=== PATIENT | female | born 1975 | race Caucasian/White ===

== ENCOUNTER 2024-09-26 12:31 | Outpatient (AMB) | payer MEDICARE, MEDICAID, SELFPAY ==
--- NOTE | 2024-09-26 12:33 | A.OFFVIS_ITS ---
Vital Signs 09/26/24 12:35 Height 5 ft 7.32 in Weight 215 lb 6.266 oz BMI 33.4 BP 140/86 H Blood Pressure Location Lt brachial Position Sitting Pulse Oximetry (%) 98 Oxygen Delivery Method Room Air Intake Visit Reasons: Intake Note: Patient presents for follow up. pt stTES THATS HE HAD COVID AND SEPT AND SHE HAS BEEN DEALING WITH BRAIN FOG EVER SINCE Allergies acetaminophen [Vicodin] Allergy (Unknown, Verified 09/12/24 10:38) Hives hydrocodone [Vicodin] Allergy (Unknown, Verified 09/12/24 10:38) hives oxcarbazepine [Trileptal] Allergy (Unknown, Verified 09/12/24 10:38) Unknown polymyxin B [From Polytrim] Allergy (Verified 09/12/24 10:38) Unknown trimethoprim [From Polytrim] Allergy (Verified 09/12/24 10:38) Unknown Sulfacet-R Allergy (Unknown, Uncoded 09/12/24 10:38) unknown methtexrate Allergy (Uncoded 09/12/24 10:38) facial swelling trileptal Allergy (Uncoded 09/12/24 10:38) Unknown HPI HPI : Details: She developed cysts around right shoulder and upper back. She had difficulty lifting her arm due to pain. In Nov she was on video call with ID who diagnosed her with Hiddrenitis suppuritiva. She started spironolactone. She will be seeing an academic hop strainer in [place] who specializes in hydradenitis suppurativa. She has had tremors in extremities. It can last 45 minutes. Legs can give out. BS 114-140. Constant back pain. Stiffness is all day. Hard to bend. Movement is making it worse. Pain is uncontrolled. She did not participate in PT. Hx of vertigo. [facility] Medical History (Updated 09/27/24 @ 21:24 by Weston Neal MD) Hidradenitis suppurativa Diabetes type 2 Endometrioma of ovary Precancerous lesion Ankylosing spondylitis Spondylolytic spondylolisthesis Zana's disease H/O degenerative disc disease Endometriosis Irritable bowel syndrome Asthma Family History (Updated 09/26/24 @ 12:44 by Debbie Aguirre [facility]) Mother Hemochromatosis Gout Stented coronary artery Father Cancer Unknown Spondylitis Multiple sclerosis Brother Throat cancer Testicular cancer Social History Household Members: Children Household Members Other:: 1 age 21 Comment: 1-2 drinks a year Patient Tobacco Use Status: Former Tobacco user Review of Systems Const All systems reviewed & are unremarkable except as noted in HPI and below Physical Exam Vital Signs: Last Vital Signs BP 140/86 H 09/26/24 12:35 Pulse Ox 98 09/26/24 12:35 Oxygen Delivery Method Room Air 09/26/24 12:35 BMI result Body Mass Index 33.4 Const Other: General: Comfortable CVS: RRR Respiratory: clear to auscultation bilaterally. Good respiratory effort Skin: No lesions seen MSK: Multiple joints in hands are tender with MCPs, PIP and wrists. She is able to oven drier tender my hands but it is weak. No synovitis. Bilateral shoulder tenderness on palpation. Right shoulder abduction 90 degrees with limited internal external rotation. Left shoulder abduction 160 degrees with good internal external rotation. Tender bilateral SI joints. Tender midthoracic spinous process and paraspinal muscles. Tender thoracic paraspinal muscles and lumbar paraspinal muscles. Limited full lumbar flexion. Positive GLADYS. Knee flexion 90 degrees bilateral limited due to back pain. She has diffuse allodynia in upper extremities and lower extremities. Assessment & Plan Assessment & Plan (1) Ankylosing spondylitis: Comment: Uncontrolled back pain is multifactorial due to myofascial strain, mild lumbar degenerative joint disease (small anterior vertebral body osteophyte L3-L4 and mild degenerative facet arthropathy L4-L5) and inflammatory back pain. DMARD therapy has been on hold due to unclear etiology of facial and extremity lesions that have become progressive and now forming cysts. She will be evaluated by academic hop strainer at [facility] who specializes in hydradenitis suppurativa 10/2024. Her most recent x-rays did not reveal radiographic findings of axial inflammatory arthritis. She continues to have persistent elevation in inflammatory markers. I am pursuing MRI pelvis for further evaluation of inflammatory sacroiliitis as it will pack changer with more aggressive treatment with biologic such as TNF inhibitor. Rheumatology history: She has non radiographic ankylosing spondylitis HLA B27 positivity, elevated inflammatory markers. Manifesting as chronic inflammatory back pain and history of peripheral arthritis affecting hands. She could not tolerate methotrexate in the past. She has a sulfa allergy. She has declined leflunomide due to side effect profile. Failed hydroxychloroquine as she continued to have persistent polyarthralgias. Cosentyx was tried in 2021 but discontinued after 2 maintenance doses due to development of facial lesions with cellulitis. After treatment of cellulitis she continued to develop facial lesions extending to involve her extremities, unclear etiology. Code(s): M45.9 - Ankylosing spondylitis of unspecified sites in spine Category: Medical Qualifiers: Ankylosing spondylitis location: sacral region Qualified Code(s): M45.8 - Ankylosing spondylitis sacral and sacrococcygeal region Plan: MRI pelvis ordered to evaluate for inflammatory sacroiliitis Start muscle relaxer baclofen 5 or 10 mg at bedtime Start NSAID meloxicam 15 mg daily Start physical therapy with myofascial release Return to clinic in 3 months (2) Myofascial low back pain: Code(s): M54.50 - Low back pain, unspecified Category: Medical Plan: PT ordered with myofascial release Start muscle relaxer baclofen 5 mg or 10 mg q.h.s. prn back pain (3) Adhesive capsulitis of right shoulder: Comment: Chronic, limited range of motion is consistent with adhesive capsulitis. She has underlying mild AC and glenohumeral joint arthritis on x-ray. Code(s): M75.01 - Adhesive capsulitis of right shoulder Category: Medical Plan: PT ordered to increase range of motion Start NSAID meloxicam 15 mg daily (4) Primary osteoarthritis, right shoulder: Code(s): M19.011 - Primary osteoarthritis, right shoulder Category: Medical Plan: See above (5) Fibromyalgia: Comment: On exam this visit she had diffuse allodynia Code(s): M79.7 - Fibromyalgia Category: Medical Plan: I will continue to monitor. She is on duloxetine, which is indicated for fibromyalgia. Orders: Orders Alanine Aminotransferase 09/26/24 M45.9 - Ankylosing spondylitis of unspecified sites in spine C Reactive Protein 09/26/24 Z79.899 - Other technician terminal and repeater (current) drug therapy XR lumbar spine 2-3V 09/26/24 M45.9 - Ankylosing spondylitis of unspecified sites in spine XR shoulder RT min 2V 09/26/24 M25.511 - Pain in right shoulder MR pelvis wo con Today G89.29 - Other chronic pain, M45.9 - Ankylosing spondylitis of unspecified sites in spine, M54.9 - Dorsalgia, unspecified Erythrocyte Sedimentation Rate 09/26/24 Z79.899 - Other technician terminal and repeater (current) drug therapy Aspartate Amino Transferase 09/26/24 M45.9 - Ankylosing spondylitis of unspecified sites in spine Creatinine 09/26/24 M45.9 - Ankylosing spondylitis of unspecified sites in spine XR sacroiliac joint min 3V 09/26/24 M45.9 - Ankylosing spondylitis of unspecified sites in spine XR thoracic spine 2V 09/26/24 M45.9 - Ankylosing spondylitis of unspecified sites in spine PT Evaluation and Treatment Today M19.011 - Primary osteoarthritis, right shoulder, M45.9 - Ankylosing spondylitis of unspecified sites in spine, M54.50 - Low back pain, unspecified, M75.01 - Adhesive capsulitis of right shoulder Medications: New meloxicam Take with food. 15 mg PO DAILY 30 tabs 2RF baclofen Take half a tablet or 1 tablet at bedtime as needed for back pain (muscle r elaxer) 10 mg PO BEDTIME PRN 30 tabs 2RF back pain Coding Level of Care Code Est Pt Level 5 (78579) Diagnoses Ankylosing spondylitis of sacral region M45.8 Ankylosing spondylitis location: sacral region Myofascial low back pain M54.50 Adhesive capsulitis of right shoulder M75.01 Primary osteoarthritis, right shoulder M19.011 Fibromyalgia M79.7 Time Spent (min) 40
[2024-09-26 12:35] VITALS: BP 140/86; O2SAT 98; BMI 33.4
--- OUTSIDE RECORDS SUMMARY | 2024-09-26 14:55 | XMS_ITS | Continuity of Care Document ---
Author Organization [facility] Address [address] [place], [place] Phone [phone] Care Team Providers Care Senior Trainer Name Role Phone Allie Galaviz CNP Care Team Information Pulmonary Care Nurse Unavailable ANJANA PICHARDO M.D. Care Team Information Rec eiver Unavailable Allie Galaviz CNP Primary Care Physician Unavaila ble Problems Active Problems Provider Date Hidradenitis suppurativa Anjana Pichardo M.D. Onset: 07/19/2024 Type 2 diabetes mellitus Anjana Pichardo M.D. Onset: 07/19/2024 Vitiligo Anjana Pichardo M.D. Onset: 0 02/05/2020 Anemia Anjana Pichardo M.D. Onset: 0 02/05/2020 Abnormal weight gain Anjana Pichardo M.D. Ons et: 02/05/2020 Zana thyroiditis Anjana Pichardo M.D. On set: 02/05/2020 Social History Type Date Description Comments Sex Unknown Allergies and adverse reactions Active Allergies Criticality Reaction Severity Comments Date Trileptal Unable to assess criticality 02/05/2020 Sulfamethoxazole Unable to assess criticality 02/05/2020 Vicodin Unable to assess criticality 02/05/2020 Polytrim Unable to assess criticality 02/05/2020 Methotrexate Unable to assess criticality 06/16/2020 Medications Active Medications SIG Qnty Indications Ordering Provider Date Freestyle Lite Blood Glucose Monitoring SystemW/Device Kit use 1x a day to test bs 1units E16.2 Anjana Pichardo M.D. 09/03/2024 E11.9 Ozempic (0.25 Or 0.5 MG/Dose)2mg/3ML Solution Pen-Inject 0.25 mg sub cutaneously every week [id number] then 0.5/week as tolerated 3ml E11.9 Anjana Pichardo M.D. 07/19/2024 Hgcvpjmuqfgpay43zv Tablets take 1 tablet by mouth twice a day 180tabs E11.9 Anjana Pichardo M.D. 07/19/2024 Levothyroxine Bjhivm65glq Tablets take 1 tablet by mouth every day 90tabs E06.3 Anjana Pichardo M.D. 06/29/2023 Neosporin Plus Pain Relief Maximum [id number] Cream multiple times a day Unknown Cyclobenzaprine HCL5mg Tablets prn Weston Neal MD Nacn-Acetyl L-Cystine(Selenium, B12) Unknown Mupirocin2% Ointment Unknown Clonidine HCL0.1mg Tablets White, Ivis, COLD WORK OPERATOR Rssxgota372kt Tablets prn arm pain/stiff Weston Neal MD Tretinoin0.05% Cream 2-3x a week Unknown Hydroxyzine OPD97zc Tablets am dose as needed Unknown Sfrqpgytmm66bd Tablets Take 1 am & 3 in pm Unknown Vitamin B Complex-CCapsules Daily Un known Ppvmvdl530dl Capsules as needed Unknown Lubricant Eye Drops0.4-0.3% Solution Unknown MultivitaminTablets 1/ day(contains iron) Unknown Benedryl prn only @hs Unknown 000 Xruivpfpaa5je Tablets Take 1 Tablet By Mouth Once Or Twice Daily as Needed Unknown History Medications Freestyle Jessy 3 Plus/Sensor/Glucose Monitoring SystemMisc use to measure bs 4 or more times a day 6units E16.2 Anjana Pichardo M.D. 08/28/2024 - 09/03/2024 E11.9 Similac Alimentum Advance-IronLiquid take 65mg iron by mouth daily 30units Anjana Pichardo M.D. 06/29/2023 - 07/19/2024 Levothyroxine Zmpyij63vmd Tablets 1 take tablet once daily 90tabs E06.3 Anjana Pichardo M.D. 11/23/2021 - 04/19/2022 [id number]-[id number] Tablets 1 tabs by mouth three times a day 90tabs D64.9 Anjana Pichardo M.D. 04/07/2020 - 03/15/2023 Levothyroxine Qiaboj19sjf Tablets Take 1&1/2 Tabs(37.5mcg) For 4 Days Per Week & 2Tabs(50mcg) For 3 Days A Week 90tabs E06.3 Anjana Pichardo M.D. 04/07/2020 - 11/23/2021 Levothyroxine Lxyybs49hjy Tablets 1 by mouth every day 90tabs E06.3 Anjana Pichardo M.D. 02/05/2020 - 04/07/2020 Cosentyx Sensoready Xud541wg/ml Solution Auto-Inject Mariel Fink MD - 04/19/2022 Escitalopram Nremxvw79vr Tablets Ivis Alejandra NP - 08/23/2024 Feso4 Liq 220mg/5ml-intolera nt Unknown - 08/23/2024 Doxycycline Nikjgwgwqsj252qw Capsules Allie Galaviz CNP - 08/23/2024 Paxlovid (300/100)20x 150 mg & 10 x 100mg TBPK Take 3 Tablets By Mouth Twice A Day For 5 Days Veronica Serra NP - 07/19/2024 Betamethasone Dipropionate Augmented0.05% Cream every other day or janice 3 or as needed Alex Blanco MD - 08/23/2024 Clindamycin Phosphate1% Lotion 2x day Tati Bowens NP - 08/23/2024 Vilazodone DLR16fk Tablets qd Ivis Alejandra NP - 08/23/2024 Levothyroxine Wcycvw15ixj Tablets Take 1&1/2 Tabs(37.5mcg) By Mouth For 4 Days Per Week & 2Tabs(50mcg) For 3 Days A Week 90tabs E06.3 Anjana Pichardo M.D. - 06/29/2023 Aliquot/Tretinion/HC Powder apply to face Unknown - 03/15/2023 Hydroxychloroquine Vkactoy505eq Tablets Take 2 Tablets By Mouth Every Day Mariel Fink MD - 08/23/2024 Amphetamine-Dextroamphet wmdtb49ia Tablets Take 1 Tablet By Mouth Twice A Day-stopped since not helpful Ivis Alejandra NP - 07/19/2024 Folic Gfrx5nu Tablets Take 1 Tablet By Mouth Every Day Unknown - 03/15/2023 Vitamin D-325mcg (1000 Ut) Capsules take 1 capsule by mouth every day in the morning for dietary supplement Unknown - 03/15/2023 Vitamin C500mg Capsules 1 by mouth every day Unknown - 06/16/2020 Gtqezoz93zr Packet Unknown 0 - 02/05/2020 Fluzone Quadrivalent0.5ml Nurys To Be Administered By Pharmacist For Immunization Unknown - 06/16/2020 Hydroxyzine HTB15qm Tablets Take 1 Tablet By Mouth With Each Meal Unknown - 11/23/[address] Part Take 1 Capsule By Mouth Every Day Unknown - 09/18/2020 Trazodone HNJ23lv Tablets Take 1 Tablet By Mouth Everyday AT Bedtime Unknown - 09/18/[address] Take 1 Capsule By Mouth Every Day Unknown - 07/19/2024 Prazosin HCL1mg Capsules Take 1 Capsule By Mouth Everyday AT Bedtime Unknown - 03/15/2023 Mecvwevxfv1xl Tablets Take 1 Tablet By Mouth Every Day Unknown - 06/16/2020 Methotrexate2.5mg Tablets Take 6 Tablets By Mouth Every Week Unknown - 06/16/2020
--- OUTSIDE RECORDS SUMMARY | 2024-09-26 14:56 | XMS_ITS | Encounter Summary ---
Author Organization [employer] Address [address] [place] [address] [address] [address] Care Team Providers Care Lime Hide Inspector Name Role Phone Key Martin Unavailable Allie Galaviz INSERT MOLDING OPERATOR Primary Care Provider [phone] Reason for Referral * Imaging (Routine) - Authorized Specialty Diagnoses / Procedures Referred By Contnicole dias Referred To Contact Cardiology Diagnoses Shortness of breath Procedures Transthoracic echo (TTE) complete Allie Galaviz NP [address] [place], [place] Phone: tel: fax: Cardio/Pulmonary Dept, [facility] [address] [place], [place] Phone: tel: fax: Referral ID Status Reason Start Date Expiration Date Visits Requested Visits Authorized [id number] Authorized Perform Procedure 09/26/2024 09/26/2025 1 1 Reason for Visit * Reason Comments Follow-up Skin condition hydro denitis suppuritiva- wasn't able to get appt with [facility] until October. Cysts, sores, leaking wounds that are spreading. Visibly upset Encounter Details Date Type Department Care Team ([facility] Contact Info) Description 09/25/2024 3:40 PM EST Office Visit [facility] [address] [place] [id number] Allie Galaviz NP [address] [place] [address] Shortness of breath (Primary Dx); Rash; Iron deficiency anemia, unspecified iron deficiency anemia type Social History Tobacco Use Types Packs/Day Years Used Date Smoking Tobacco: Former Cigarettes Q uit: 07/31/2018 Smokeless Tobacco: Never Alcohol Answer Date Recorded How often do you have a drink containing alcohol ? 0 12/18/2023 How many drinks containing a lcohol do you have on a typical day when you are drinking? 0 12/18/2023 How often do you have six or more drinks on one occasion? 0 12/18/2023 Depression Answer Date Recorded Patient Health Questionnaire-9 Score 24 06/02/2023 Patient Health Questionnaire-9 Score 24 06/02/2023 Last PHQ-9: Questionnaire Data Not on file 1 08/02/2022 Housing Stability Answer Date Recorded What is your housing situation today? I have lakisha edwards 06/02/[address] you li ve. Do you have problems with any of the following? Mold 06/02/2023 Food Insecurity Answer Date Recorded Within the past 12 months, y ou worried that your food would run out before you got money to buy more: Never True 06/02/2023 Within the past 12 months,th e food you bought just didn't last and you didn't have enough money to get more: Never True 09/2022 Transportation Answer Date Recorded In the past 12 months, has l ack of transportation kept you from medical appts, meetings, work or from getting things needed for daily living? No 06/02/2023 Intimate Partner Violence Answer Date R ecorded Within the last year, have y ou been afraid of your partner or ex-partner? 2 06/02/2023 Within the last year, have y ou been humiliated or emotionally abused in other ways by your partner or ex-partner? 2 Within the last year, have y ou been kicked, hit, slapped, or otherwise physically hurt by your partner or ex-partner? 2 06/02/2023 Within the last year, have y ou been raped or forced to have any kind of sexual activity by your partner or ex-partner? 2 06/02/2023 Utilities Answer Date Recorded In the past 12 months, has t he electric, gas, oil or water company threatened to shut off services in your home? No 06/02/2023 Depression Answer Date Recorded Patient Health Questionnaire-2 Score 6 06/02/2023 Comments No Sex and Gender Information Value Date Recorded Sex Assigned at Female 08/25/2022 12:05 PM EST Legal Sex Female 6:20 PM EDT Gender Identity Female 08/25/2022 12:05 PM EST Sexual Orientation Straight 08/25/2022 12 :05 PM EST documented as of this encounter Last Filed Vital Signs Vital Sign Reading Time Taken Comments Blood Pressure - - Pulse 120 09/25/2024 4:17 PM EST Temperature 36.1 ??C (97 ??F) 09/25/2024 4:17 PM EST Respiratory Rate - - Oxygen Saturation 98% 09/25/2024 4:17 PM EST Inhaled Oxygen Concentration - - Weight 97.3 kg (214 lb 9.6 oz) 09/25/2024 4:17 P M EST Height - - Body Mass Index 34.64 06/14/2024 2:57 PM EST documented in this encounter Progress Notes * Allie Galaviz NP - 09/25/2024 3:40 PM EST Images from the original note were not included. Subjective Patient ID: Shelley Keita is a 49 y.o. female who presents today for Chief Complaint Patient presents with Follow-up Skin condition hydrodenitis suppuritiva- wasn't able to get appt with [facility] until October. Cysts, sores, leaking wounds that are spreading. Visibly upset HPI Shelley presents for ongoing skin issues and shortness of breath. Skin wounds/rash - unfortunately Shelley has ongoing issues with rashes/lesions and abscess that occur all over her body and may be associated with Sjogrens and/or staph and/or hidradenitis - she presents today with lesions on torso, legs, face and abdomen - she has had really good improvement in her skin with prolonged courses on Doxycycline - her wounds drain yellowish, bad smelling pus and have no particular obvious cause SOB/Dyspnea Iron deficiency Anemia, severe and symptomatic - she has h/o chronic anemia and has been on oral iron for over 3 years. In May 2024 her Hgb was 8.4 and we tried to refer to Hematology but there was miscommunication in the referral and she was never seen - Shelley also described feeling extremely SOB with SANDS and dpysnea when bending over - she is getting dizzy spells and feels vertiginous - at times she feels super shaky and has bilateral hand tremors - she uses an OTC formulation of iron due to tolerability- she truong been unable to tolerate multiple forms of prescription iron - of note she does have a h/o asthma and COVID in the fall of 2023 - she has had long-covid symptoms of fatigue and brain fog - she has not had wheezing Swelling - Shelley also describes generalized swelling and feeling like her skin is a water balloon - she was put on Leonard from [employer] helps - minimal swelling noted today DM2 - seeing Dr. Pichardo, diagnosed with diabetes based on A1C - started on Ozempic and has lost about 8 pounds - checks her BG when feeling shaky/weak and typically values are in the mid 100s ELENA supsected - consulted with [facility] via virtual call and is now pending sleep study Review of Systems HENT: Negative for congestion. Respiratory: Positive for chest tightness and shortness of breath. Negative for cough. Cardiovascular: Positive for leg swelling. Negative for palpitations. Skin: Positive for rash. Neurological: Positive for dizziness, tremors and weakness. Objective Pulse (!) 120 Temp 97 ??F (36.1 ??C) (Temporal) Wt 214 lb 9.6 oz (97.3 kg) SpO2 98% BMI 34.64 kg/m?? Physical Exam Vitals reviewed. Cardiovascular: Rate and Rhythm: Regular rhythm. Tachycardia present. Heart sounds: Normal heart sounds. No murmur heard. Comments: Pulse 120 Pulmonary: Breath sounds: No stridor. No wheezing or rhonchi. Comments: O2 98% at rest on room air today Skin: Comments: Multiple lesions noted, images uploaded in media Most significant is on suprapubic area, actively exudative with yellowish pus with peripheral erythema Neurological: Mental Status: She is alert. Psychiatric: Comments: Anxious Patient Active Problem List Diagnosis Abnormal weight gain Allergic rhinitis Alopecia Anemia Ankylosing spondylitis of lumbar region (CMS/HCC) Cervicalgia Classical migraine with intractable migraine Zana's thyroiditis Pre-diabetes Irritable bowel syndrome with alternating bowel habits Nicotine dependence Pain of toe Depression with anxiety Panic disorder Prolapsed internal hemorrhoids Sjogren's syndrome (CMS/HCC) Strain of neck muscle Tonsillar calculus Urticaria Vitiligo Well controlled intermittent asthma Rash Cognitive change Impaired glucose tolerance Shortness of breath Current Outpatient Medications Medication Instructions amphetamine-dextroamphetamine (Adderall) 30 MG tablet TAKE ONE (1) TABLET BY MOUTH EVERY MORNING AND ONE HALF (0.5) TABLETS EVERY AFTERNOON chlorhexidine (Hibiclens) 4 % external liquid Topical, Daily PRN clonazePAM (KLONOPIN) 1 mg, 2 times daily PRN cloNIDine (Catapres) 0.1 MG tablet TAKE ONE TABLET BY MOUTH AT BEDTIME, MAY REPEAT ONCE cyclobenzaprine (FLEXERIL) 5 mg, Nightly Cymbalta [address] capsule doxycycline (MONODOX) 100 mg, Oral, 2 times daily Hibiclens 4 % solution APPLY TOPICALLY IF NEEDED EACH DAY FOR WOUND CARE. hydrOXYzine HCl (Atarax) 50 MG tablet TAKE ONE (1) TABLET BY MOUTH TWICE A DAY, NEEDED FOR ANXIETY/INSOMNIA/ITCHING loratadine (CLARITIN) 10 mg, Oral, Every morning mupirocin (Bactroban) 2 % ointment APPLY TOPICALLY 3 TIMES DAILY FOR 10 DAYS TO AFFECTED AREA(S) semaglutide (Ozempic, 0.25 or 0.5 MG/DOSE,) 2 MG/1.5ML solution pen-injector silver sulfADIAZINE (Silvadene) 1 % cream Topical, Daily spironolactone (Aldactone) 25 MG tablet topiramate (Topamax) 25 MG tablet TAKE ONE (1) TABLET BY MOUTH EVERY MORNING AND THREE (3) TABLETS AT BEDTIME tretinoin (Retin-A) 0.05 % cream No dose, route, or frequency recorded. Assessment/Plan Problem List Items Addressed This Visit Anemia Current Assessment & Plan - patient is highly symptomatic with SOB, highly suspicious of anemia - she continues on OTC Oral iron, recommended to continue - will check CBC and discussed the possible need for IV iron, but will follow up based on results Relevant Orders CBC Iron, TIBC And Ferritin Panel Rash Overview Previously established with Dermatology, Rheumatology, and Infectious Disease. Per ID note in 09/23: - ongoing issues with various skin lesions, most notable on her face. - previous dermatology evaluation has suggested that these are the result of trauma - Most likely not infectious etiology. Possible that there could be some colonization of the skin, and I think it is unclear if these will even benefit from topical therapy. - defer to Derm and whether biopsy is indicated in the current situation. Current Assessment & Plan - chronic skin problems with increase in lesions recently now located on torso, abdomen, legs and face - she has had extensive specialist review and has multiple treatments at home that provide variablepreventive effectiveness - lesion on the abdomen bandaged with Wound Honey and Island dressing - will do 21 day course of Doxycyline - close follow up with PCP, consider culture if she has exudative lesion at follow up Relevant Medications doxycycline (Monodox) 100 MG capsule silver sulfADIAZINE (Silvadene) 1 % cream Shortness of breath - Primary Current Assessment & Plan - Ddx: anemia, long-covid, restrictive lung disease secondary to rheumatologic conditions, CHF - will check CBC and iron studies - will check ECHO given SANDS and swelling - will order PFTs - close follow up with PCP in 2-3 weeks for monitoring Relevant Orders CBC Transthoracic echo (TTE) complete Comprehensive Metabolic Panel Follow up in about 3 weeks (around 10/16/2024) for SOB/Rash- please move follow up scheduled with LMon 10/01 to PCP in approx 3 weeks. Future Appointments Date Time Provider Department Center 10/01/2024 4:20 PM JOEL Frankel [facility] This visit documentation was prepared using [id number] dictation software (ambient clinical notes). The patient's consent was obtained prior to use. documented in this encounter Miscellaneous Notes * Assessment & Plan Note - Allie Galaviz NP - 09/26/2024 8:38 AM ESTAssociated Problem(s): Shortness of breath - Ddx: anemia, long-covid, restrictive lung disease secondary to rheumatologic conditions, CHF - will check CBC and iron studies - will check ECHO given SANDS and swelling - will order PFTs - close follow up with PCP in 2-3 weeks for monitoring * Assessment & Plan Note - Allie Galaviz NP - 09/26/2024 8:37 AM ESTAssociated Problem(s): Rash - chronic skin problems with increase in lesions recently now located on torso, abdomen, legs and face - she has had extensive specialist review and has multiple treatments at home that provide variablepreventive effectiveness - lesion on the abdomen bandaged with Wound Honey and Island dressing - will do 21 day course of Doxycyline - close follow up with PCP, consider culture if she has exudative lesion at follow up * Assessment & Plan Note - Allie Galaviz NP - 09/26/2024 8:35 AM ESTAssociated Problem(s): Anemia - patient is highly symptomatic with SOB, highly suspicious of anemia - she continues on OTC Oral iron, recommended to continue - will check CBC and discussed the possible need for IV iron, but will follow up based on results documented in this encounter Plan of Treatment Upcoming Encounters Date Type Department Care Team (Late st Contact Info) Description 10/01/2024 4:20 PM EST Office Visit [address] [phone] Veronica Serra FNP [address] [place] [id number] Scheduled Orders Name Type Priority Associated Diagnoses Orde r Schedule CBC Lab Routine Shortness of breath Iron deficiency anemia, unspecified iron deficiency anemia type Expected: 09/26/2024 (Approximate), Expires: 09/25/2025 Transthoracic echo (TTE) complete Echocardiography Routine Shortness of breath Expected: 09/26/2024 (Approximate), Expires: 03/25/2025 Comprehensive Metabolic Panel Lab Routine Shortness of breath Expected: 09/26/2024 (Approximate), Expires: 09/25/2025 Iron, TIBC And Ferritin Panel Lab Routine Iron deficiency anemia, unspecified iron deficiency anemia type Expected: 09/26/2024 (Approximate), Expires: 09/26/2025 documented as of this encounter Visit Diagnoses Diagnosis Shortness of breath- Primary Rash Rash and other nonspecific skin eruption Iron deficiency anemia, unspecified iron deficiency anemia type documented in this encounter Additional Health Concerns Assessment Noted Time PHQ-9 Depression Total Score: 24 023 4:48 PM EDT documented as of this encounter Care Teams Lime Hide Inspector Relationship Specialty Start Date End Date Allie Galaviz NP [address] [place] [address] PCP - General Family Medicine 05/10/23 Key Martin [address] [place] [address] [facility] 02/27/23 documented as of this encounter
--- OUTSIDE RECORDS SUMMARY | 2024-09-26 14:56 | XMS_ITS | Clinical Summary ---
Author Organization [facility] Address [address] [place] [address] Care Team Providers Care Associate Account Manager Name Role Phone Allie Galaviz HAND STRAIGHTENER Primary Care Provider [phone] Allergies No known active allergies Medications clindamycin (CLEOCIN T) 1 % lotionIndicatio ns:Skin erosion Apply to face every morning for acne. 60 mL 3 3 Active tacrolimus (PROTOPIC) 0.1 % ointmentIndicat ions:Dermatitis Apply topically to the affected area 2 times a day. 60 g 3 3 Active mupirocin (BACTROBAN) 2% ointmentIndicat ions:Skin erosion APPLY TOPICALLY TO AFFECTED AREA DAILY 22 g 3 4 Active Active Problems No known active problems Encounters Date Type Department Care Team Description 08/27/2024 Telephone [facility] [address] [place] [address], [place] [address] Office Machine Installer: Oly Juarez Telephone Intake, Staff PAC Patient Request Call Back; PAC Sick/Symptoms from Last 3 Months Immunizations Immunization Administration Dates Next Due Covid-19, Pfizer, mRNA, Storey valent, PF 30 mcg/0.3 mL dose (for ages 12 and older) 10/07/2020,09/08/2020 Social History Tobacco Use Types Packs/Day Years Used Date Smoking Tobacco: Never Assessed Comments Unknown Sex and Gender Information Value Date Recorded Sex Assigned at Female 06/09/2023 12:33 AM EST Legal Sex Female 10:44 AM EDT Gender Identity Female 06/09/2023 12:33 AM EST Sexual Orientation Straight 06/09/2023 12 :33 AM EST Plan of Treatment Upcoming Encounters Date Type Department Care Team (Late st Contact Info) Description 11/14/2024 2:30 PM EDT Office Visit [facility] 4th Floor [address] [facility], [place] [address] Office Machine Installer: Olga Lidia Mayers MD [address] [place] [address] Health Maintenance Due Date Last Done Comments Cervical Cancer Screening 1977 Cologuard 1977 Colon Cancer Screening 1977 Colonoscopy 1977 FOBT / Fit Test 1977 HIV Screening 1977 HPV and Pap Smear 1977 Hepatitis C Screening 1977 Pap Smear 1977 Sigmoidoscopy 1977 Hepatitis B Vaccines (1 of 3 - 19+ 3-dose series) 01/21/1996 DTaP,Tdap,and Td Vaccines (1 - Tdap) 01/23/2001 01/22/2001 COVID-19 Vaccine (2023-2 5 season) 2024 05/18/2022, 09/06/2021, 04/14/2021, Additional history exists Influenza Vaccine (#1) 2024 3, 05/18/2022, 04/17/2020, Additional history exists Alcohol/Substance Use Screening 07/31/2024 Depression Screening and Follow-Up 07/31/2024 Social Drivers of Health [place] ual Screening 07/31/2024 Mammogram 01/16/2025 01/16/2023 RSV Vaccine (60+ years old a nd patients) (1 - 1-dose 75+ series) 01/21/2052 Pneumococcal Vaccine: Pediat isaiah (0-5 Years) and At-Risk Patients (6-50 Years) Completed 09/06/2021, 04/29/2020 Insurance [facility] MEDIC[facility] Care Teams Associate Account Manager Relationship Specialty Start Date End Date Allie Galaviz NP [address] [place] [phone] PCP - General Family Medicine 08/27/24
--- OUTSIDE RECORDS SUMMARY | 2024-09-26 14:56 | XMS_ITS | Clinical Summary ---
Author Organization [employer] Address [address] [place] [address] 7t [place] [address] Care Team Providers Care Firestopper Installer Name Role Phone Key Martin Unavailable Allie Galaviz NP Primary Care Provider [phone] Allergies Active Allergy Reactions Criticality Noted Date Comments Hydrocodone-Acetaminophen Hives,Rash High 01/17/2012 Other reaction(s): Skin Rashes, Hives Methotrexate Swelling 05/21/2021 Peeling of skin, hives, arthralgias, myalgias, weakness, pleural effusion Oxcarbazepine Rash Low 05/13/2016 Muscle wasting Polymyxin B-Trimethoprim 08/25/2022 Sulfa Antibiotics Hives 05/13/2016 Sulfamethoxazole 08/25/2022 Trazodone 08/27/2020 Other reaction(s): foggy and groggy Medications chlorhexidine (Hibiclens) 4 % external liquidIndicatio ns:Folliculitis Apply topically if needed each day for wound care. 946 mL 11 08/25/19 23 Active clonazePAM (KlonoPIN) 1 MG tablet Take 1 mg by mouth if needed in the morning and at bedtime. 08/18/19 23 Active hydrOXYzine HCl (Atarax) 50 MG tablet TAKE ONE (1) TABLET BY MOUTH TWICE A DAY, NEEDED FOR ANXIETY/INSO MNIA/ITCHING 06/15/20 22 Active topiramate (Topamax) 25 MG tablet TAKE ONE (1) TABLET BY MOUTH EVERY MORNING AND THREE (3) TABLETS AT BEDTIME 07/18/20 22 Active tretinoin (Retin-A) 0.05 % cream 08/19/19 23 Active amphetamine-dex troamphetamine (Adderall) 30 MG tablet TAKE ONE (1) TABLET BY MOUTH EVERY MORNING AND ONE HALF (0.5) TABLETS EVERY AFTERNOON 11/26/19 23 Active cyclobenzaprine (Flexeril) 5 MG tablet Take 5 mg by mouth at bedtime. 06/21/20 23 Active mupirocin (Bactroban) 2 % ointmentIndicat ions:Follicular disorder, unspecified APPLY TOPICALLY 3 TIMES DAILY FOR 10 DAYS TO AFFECTED AREA(S) 22 g 11 09/21/19 24 Active loratadine (Claritin) 10 MG tablet Take 1 tablet (10 mg) by mouth in the morning. 90 tablet 3 07/01/20 24 Active Hibiclens 4 % solution APPLY TOPICALLY IF NEEDED EACH DAY FOR WOUND CARE. 944 mL 11 07/12/20 24 Active semaglutide (Ozempic, 0.25 or 0.5 MG/DOSE,) 2 MG/1.5ML solution pen-injector 08/25/19 25 Active spironolactone (Aldactone) 25 MG tablet 07/19/20 [address] Cymbalta [address] capsule 09/15/19 25 Active doxycycline (Monodox) 100 MG capsuleIndicati ons:Rash Take 1 capsule (100 mg) by mouth 2 times daily for 21 days. 42 capsule 09/26/19 25 025 Active silver sulfADIAZINE (Silvadene) 1 % creamIndication s:Rash Apply topically Once per day. 400 g 1 09/26/19 25 Active cloNIDine (Catapres) 0.1 MG tablet TAKE ONE TABLET BY MOUTH AT BEDTIME, MAY REPEAT ONCE 06/15/20 23 025 Discontinued doxycycline (Monodox) 100 MG capsule TAKE 1 CAPSULE BY MOUTH TWICE A DAY FOR 10 DAYS 20 capsule 07/23/20 24 025 Discontinued(Re order (will not trigger notification to Pharmacy)) Active Problems Problem Noted Date Diagnosed Date Shortness of breath 09/26/2024 Assessment & Plan (09/26/2024 8:38 AM EST): - Ddx: anemia, long-covid, restrictive lung disease secondary to rheumatologic conditions, CHF - will check CBC and iron studies - will check ECHO given SANDS and swelling - will order PFTs - close follow up with PCP in 2-3 weeks for monitoring Impaired glucose tolerance 12/18/2023 Assessment & Plan (12/20/2023 1:08 PM EDT): Due for monitoring, check labs today Cognitive change 07/13/2023 Assessment & Plan (07/13/2023 10:42 AM EST): Patient notes some cognitive slowing, some history of difficulty with word finding. Advised today that we will see what Rheum says about her clinical picture and monitor for any correlation. Otherwise, next step for evaluating this would be to review previous imaging and assess for need for repeat. Also do a comprehensive medication review for meds that may impact cognition. Asked patient to bring all meds to next visit for review. Rash 06/02/2023 Overview (02/14/2024): Previously established with Dermatology, Rheumatology, and Infectious [...] biopsy is indicated in the current situation. Assessment & Plan (09/26/2024 8:37 AM EST): - chronic skin problems with increase in lesions recently now located on torso, abdomen, legs and face - she has had extensive specialist review and has multiple treatments at home that provide variable preventive effectiveness - lesion on the abdomen bandaged with Wound Honey and Island dressing - will do 21 day course of Doxycyline - close follow up with PCP, consider culture if she has exudative lesion at follow up Assessment & Plan (02/14/2024 10:42 AM EDT): Patient has had ongoing facial and body lesions for ongoing years and has been seen by multiple specialists. History significant for worsening sxs as well as gradual visual changes and pain with eye movements. Pictures in media. Due to recent elevated white count, pain with eye movements, increase in erythema on face, shared decision making for patient to be further evaluated in ER for possible orbital cellulitis. - Will also place referral for dermatology as patient has been dealing with issues for >3 years. - Offered EMS services, patient declined, son will transport - Recommended close follow up, RTC in 2 weeks Assessment & Plan (12/20/2023 1:05 PM EDT): Facial rash has many stages of healing and discoloration Encouraged to continue with minimal interference, use vaseline and mupiricin only Encouraged hydration and good nutrition Assessment & Plan (06/02/2023 4:49 PM EDT): - patient has extensive facial peeling rash, spots on legs and back - etiology unknown, ?related to Sjogrens - DDx also includes med reaction, MRSA - patient needs skin biopsy at this point to confirm diagnosis - will initiate urgent DERM referral for comprehensive eval Pre-diabetes 06/11/2020 Overview (07/13/2023): Note: metabolic syndrome per endo note Mar 2020, A1C 5.7 in Jun 2023 outside lab Assessment & Plan (07/13/2023 10:40 AM EST): Encouraged continued focus on low sugar/starch and encouraged to increase physical activity Ankylosing spondylitis of lumbar region 02/24/20 Overview (07/13/2023): Followed by Dr. Neal at [facility] in [place] Assessment & Plan (07/13/2023 10:39 AM EST): Now established with Dr. Neal at [facility], pending comprehensive lab and XR re-evaluation, following up in August. Referring to PT for myofascial release and therapeutic exercise as this has really helped patient in the past Assessment & Plan (06/02/2023 4:46 PM EDT): - previously followed by Rheum, provider left practice - new referral back to Rheum for URG new patient - encouraged ice for swelling in joint and back pain Abnormal weight gain 02/05/2020 Anemia 02/05/2020 Assessment & Plan (09/26/2024 8:35 AM EST): - patient is highly symptomatic with SOB, highly suspicious of anemia - she continues on OTC Oral iron, recommended to continue - will check CBC and discussed the possible need for IV iron, but will follow up based on results Assessment & Plan (12/20/2023 1:07 PM EDT): Repeat Iron labs to ensure adequate nutrition Assessment & Plan (07/13/2023 10:41 AM EST): Noted low iron on outside labs, encouraged to continue liquid iron with Vit C, monitor for GI effects Zana's thyroiditis 02/05/2020 Assessment & Plan (12/20/2023 1:08 PM EDT): Overdue for TSH monitoring, will check today and titrate dose based on results Vitiligo 02/05/2020 Strain of neck muscle 02/04/2019 Cervicalgia 12/25/2018 Assessment & Plan (07/13/2023 10:38 AM EST): Chronic neck pain with h/o ankylosing spondylitis, has benefited from PT with myofascial release in the past and requesting repeat referral, placed. Irritable bowel syndrome with alternating bowel habits 07/19/2018 Prolapsed internal hemorrhoids 07/19/2018 Assessment & Plan (07/13/2023 10:25 AM EST): With history of rectal fissure surgically repaired [facility]. Ongoing hemorrhoid discomfort, will refer back to Colorectal Surgery Alopecia 04/24/2018 Nicotine dependence 04/24/2018 Classical migraine with intractable migraine 06/2018 Tonsillar calculus 10/09/2017 Pain of toe 05/31/2017 Depression with anxiety 05/31/2017 Overview (12/20/2023): since high school Assessment & Plan (12/20/2023 1:06 PM EDT): Mood is significantly low. Normalized her frustration with ongoing skin issues. Encouraged her to focus on her mental health separate from facial rash. Encouraged to speak to her psych prescriber to consider med changes. Encouraged daily 5min sessions outside every day. Sjogren's syndrome 02/23/2015 Assessment & Plan (06/02/2023 4:45 PM EDT): - patient previously was followed by Rheum on Hydroxychloroquine and Cosentyx which helped a lot. - provider left practice, is in need of new Member Of Parliament - will place urgent referral to assist in FELY visit Urticaria 11/03/2014 Allergic rhinitis 01/17/2012 Panic disorder 01/17/2012 Well controlled intermittent asthma 01/17/2012 Encounters Date Type Department Care Team Description 09/25/2024 3:40 PM EST Office Visit [address] [phone] Allie Galaviz, JENELLE Shortness of breath (Primary Dx); Rash; Iron deficiency anemia, unspecified iron deficiency anemia type 09/25/[address] [address] Allie Galaviz NP 09/24/2024 Travel 08/04/[address] [phone] Allie Galaviz NP 07/29/2024 Travel 07/23/[address] [phone] Allie Galaviz NP 07/11/[address] [address] Tanja Phillips FNP 06/28/[address] [address] Allie Galaviz NP 06/28/[address] [phone] Allie Galaviz NP from Last 3 Months Immunizations Name Administration Dates Next Due Hep B, adult 08/23/2005,07/29/2004,10/01/2001 Influenza Injectable Quadriv alant Preservative Free IIV4 MDCK 04/17/2020 Influenza injectable quadriv alent IIV4 with preservative 04/24/2018,04/16/2015,06/10/2014 Influenza injectable quadriv alent preservative free 07/13/2023,05/18/2022,09/02/2019 Pfizer Covid-19 Vaccine 12+ 10/07/2020, Pneumococcal Conjugate PCV 20 09/06/2021 Pneumococcal Polysaccharide PPSV23 04/29/2020 Td (adult) 01/22/2001 Social History Tobacco Use Types Packs/Day Years Used Date Smoking Tobacco: Former Cigarettes Q uit: 07/31/2018 Smokeless Tobacco: Never Tobacco Cessation:Counseling Given: Not Answered Alcohol Answer Date Recorded How often do [...] the past 12 months, has t he [employer], [employer] [employer], oil or water [place] threatened to shut off services in your home? No 06/02/2023 Depression Answer Date Recorded Patient Health Questionnaire-2 Score 6 06/02/2023 Comments No Sex and Gender Information Value Date Recorded Sex Assigned at Female 08/25/2022 12:05 PM EST Legal Sex Female 6:20 PM EDT Gender Identity Female 08/25/2022 12:05 PM EST Sexual Orientation Straight 08/25/2022 12 :05 PM EST Last Filed Vital Signs Vital Sign Reading Time Taken Comments Blood Pressure 136/75 06/14/2024 2:57 PM EST Pulse 120 09/25/2024 4:17 PM EST Temperature 36.1 ??C (97 ??F) 09/25/2024 4:17 PM EST Respiratory Rate - - Oxygen Saturation 98% 09/25/2024 4:17 PM EST Inhaled Oxygen Concentration - - Weight 97.3 kg (214 lb 9.6 oz) 09/25/2024 4:17 P M EST Height 167.6 cm (5' 6 ) 06/14/2024 2:57 PM EST Body Mass Index 34.64 06/14/2024 2:57 PM EST Plan of Treatment Upcoming Encounters Date Type Department Care Team (Late st Contact Info) Description 10/01/2024 4:20 PM EST Office Visit [facility] [address] [place] [address] Veronica Serra FNP [address] [place] [address] Health Maintenance Due Date Last Done Comments CT Colonography 1977 FIT DNA/Cologuard 1977 FIT 1977 FOBT 1977 HIV Screening 1977 Lipid Panel 1977 Sigmoidoscopy 1977 Family Planning (PISQ) 01/21/1992 DTaP/Tdap/Td Vaccines (1 - Tdap) 01/23/2001 01/22/2001 Depression Monitoring (PHQ-9) 12/01/2023 06/02/2023, 06/02/2023 COVID-19 Vaccine ( season) 2024 05/18/2022, 09/06/2021, 04/14/2021, Additional history exists Depression Screening 06/02/2024 06/02/2023, 06/02/20 SDOH Screening 06/02/2024 06/02/2023 Alcohol/Substance Use Screening 12/17/2024 12/18/2023 Mammogram 01/16/2025 01/16/2023, 02/28, 12/04/2018, Additional history exists Pap Smear 04/07/2025 04/07/2022 Tobacco Screening 06/14/2025 06/14/2024 Zoster Vaccines (1 of 2) 2027 Cervical Cancer Screening 04/07/2027 HPV/Cotest 04/07/2027 04/07/2022, 04/07/2022 Colonoscopy 10/02/2029 10/03/2019 Colorectal Cancer Screening 10/02/2029 RSV Patients and Patients Aged 60 years or older (1 - 1-dose 75+ series) 01/21/2052 Hepatitis B Vaccines Completed 08/23/2005, 07/29/2004, 10/01/2001 Pneumococcal Vaccine: Pediatrics (0 to 5 Years) and At-Risk Patients (6 to 49) Years) Completed 09/06/2021, 04/29/2020 Hepatitis C Screening Completed 09/14/2021 Influenza Vaccine Completed 02/05/2024, , 05/18/2022, Additional history exists HIB Vaccines Aged Out No longer eligi ble based on patient's age to complete this topic HPV Vaccines Aged Out No longer eligi ble based on patient's age to complete this topic Hepatitis A Vaccines Aged Out No long er eligible based on patient's age to complete this topic IPV Vaccines Aged Out No longer eligi ble based on patient's age to complete this topic Meningococcal Vaccine Aged Out No [place] renetta eligible based on patient's age to complete this topic RSV under 20 months Aged Out No longe r eligible based on patient's age to complete this topic Rotavirus Vaccines Aged Out No longer eligible based on patient's age to complete this topic Procedures Procedure Name Priority Date/Time Associated Diagnosis Comments XR CHEST 2 VIEWS Routine 07/09/2024 4:08 PM EST SOB (shortness of breath) BI MAMMOGRAM SCREENING TOMOSYNTHESIS BILATERAL Routine 01/16/2023 5:12 PM EDT HM PAP/HPV Routine 04/07/2022 HM HEPATITIS C ANTIBODY Routine 09/14/2021 COLONOSCOPY Routine 10/03/2019 12:00 AM EST from Last 3 Months or Most Recently Relevant to Health Maintenance Results * XR Chest 2 Views (07/09/2024 4:08 PM EST) Anatomical Region Laterality Modality Chest Radiographic Amaris ging 07/09/2024 4:08 PM EST Narrative 07/09/2024 4:20 PM EST Chest 2 Views Frontal and Lat Reason: SOB COMPARISON: Multiple prior chest radiographs with the most recent dated 07/08/2013. FINDINGS: LINES AND TUBES: None. LUNGS AND PLEURA: Clear lungs. Normal pulmonary vascularity. No pleural effusion. No pneumothorax. HEART, MEDIASTINUM AND SUSIE: Heart is normal in size. Normal mediastinal and hilar contour. BONES AND SOFT TISSUES: No acute abnormality. IMPRESSION: No acute abnormality. WSN: [id number] Ordering Physician: Veronica Serra Dictated By: ?Nestor Goodwin MD, V Dictated Date/Time: ?07/09/24 4:17 pm Reviewed By: ?Nestor Goodwin MD, V Signed By: ? Nestor Goodwin MD, V Signed Date/Time: ? 07/09/24 4:17 pm Transcribed By: ? JOSELO Transcribed Date/Time: ?07/09/24 4:17 pm Procedure Note Donotuseinterpreter, Image - 07/09/2024 Chest 2 Views Frontal and Lat Reason: SOB COMPARISON: Multiple prior chest radiographs with the most recent dated 07/08/2013. FINDINGS: LINES AND TUBES: None. LUNGS AND PLEURA: Clear lungs. Normal pulmonary vascularity. No pleural effusion. No pneumothorax. HEART, MEDIASTINUM AND SUSIE: Heart is normal in size. Normal mediastinal and hilar contour. BONES AND SOFT TISSUES: No acute abnormality. IMPRESSION: No acute abnormality. WSN: [id number] Ordering Physician: Veronica Serra Dictated By: Nestor Goodwin MD, V Dictated Date/Time: 07/09/24 4:17 pm Reviewed By: Nestor Goodwin MD, V Signed By: Nestor Goodwin MD, V Signed Date/Time: 07/09/24 4:17 pm Transcribed By: JOSELO Transcribed Date/Time: 07/09/24 4:17 pm Veronica Serra SWIMMING POOL CLEANER IMG XR PROCEDURES Final Result * BI Mammogram Screening Tomosynthesis Bilateral (01/16/2023 5:12 PM EDT) Anatomical Region Laterality Modality Breast Bilateral Mammography 01/16/2023 5:12 PM EDT Narrative 01/17/2023 8:56 AM EDT PROCEDURE: MM Digital Mammo Screening INDICATION: Screening for breast cancer. No known palpable abnormalities. COMPARISON: Prior mammograms dating back to 11/27/2018. TECHNIQUE: Full-field digital CC and MLO 3-D tomosynthesis images of both breasts were acquired. Computer-aided detection (CAD) was utilized in the interpretation of this study. DENSITY: The breast tissue is heterogeneously dense, which may obscure masses. FINDINGS: No suspicious masses, suspicious microcalcifications, or areas of architectural distortion are seen in either breast to suggest malignancy. There are stable scattered bilateral benign calcifications. IMPRESSION: No mammographic evidence of malignancy. RECOMMENDATION: Annual mammographic screening BI-RADS: 2 (Benign) Lay letter mailed to patient WSN: [id number] Ordering Physician: Tati Bowens Dictated By: ?Kandy Lewis MD Dictated Date/Time: ?01/17/23 8:53 am Reviewed By: ?Kandy Lewis MD Signed By: ? Kandy Lewis MD Signed Date/Time: ? 01/17/23 8:53 am Transcribed By: ? CSB Naval Engineer Date/Time: ? 01/17/23 8:50 am Birads: Procedure Note Donotuseinterpreter, Image - 01/17/2023 PROCEDURE: MM Digital Mammo Screening INDICATION: Screening for breast cancer. No known palpableabnormalities. COMPARISON: Prior mammograms dating back to 11/27/2018. TECHNIQUE: Full-field digital CC and MLO 3-D tomosynthesis images ofboth breasts were acquired. Computer-aided detection (CAD) was utilized inthe interpretation of this study. DENSITY: The breast tissue is heterogeneously dense, which may obscuremasses. FINDINGS: No suspicious masses, suspicious microcalcifications, or areasof architectural distortion are seen in either breast to suggest malignancy.There are stable scattered bilateral benign calcifications. IMPRESSION: No mammographic evidence of malignancy. RECOMMENDATION: Annual mammographic screening BI-RADS: 2 (Benign) Lay letter mailed to patient WSN: [id number] Ordering Physician: Tati Bowens Dictated By: Kandy Lewis MD Dictated Date/Time: 01/17/23 8:53 am Reviewed By: Kandy Lewis MD Signed By: Kandy Lewis MD Signed Date/Time: 01/17/23 8:53 am Transcribed By: JOSELO Naval Engineer Date/Time: 01/17/23 8:50 am Birads: Tati Bowens SWIMMING POOL CLEANER IMG BI PROCEDURES Final Result * Hm Pap Smear (04/07/2022) Pap Negative for intraephithelial lesion or malignancy Negative for intraephithelial lesion or malignancy, Other HPV Undetected Historical Provider HEALTH MAINTENANCE Final Result * HM Hepatitis C Antibody (09/14/2021) Hepatitis C Antibody Nonreactive Blood Historical Provider HEALTH MAINTENANCE Final Result * Colonoscopy (10/03/2019 12:00 AM EST) Anatomical Region Laterality Modality Endoscopy 10/03/2019 Narrative 10/03/2019 12:00 AM EST Refer to the Notes tab for result details Legacy Procedure: Colonoscopy Procedure Note Provider, MD Gregory - 10/22/2022 Refer to the Notes tab for result details Legacy Procedure: Colonoscopy Historical Provider ENDOSCOPY PROCEDURE ORDER SYDNIE Final Result from Last 3 Months or Most Recently Relevant to Health Maintenance Insurance [facility] [employer] MEDIC[employer] Care Teams Firestopper Installer Relationship Specialty Start Date End Date Allie Galaviz NP [address] [place] [address] PCP - General Family Medicine 05/10/23 Key Martin [address] [place], [place] [facility] 02/27/23
--- OUTSIDE RECORDS SUMMARY | 2024-09-26 14:56 | XMS_ITS | Encounter Summary ---
Author Organization [facility] Address [address] [place] [address] Care Team Providers Care Ms Sql Developer Name Role Phone Allie Galaviz WOOL WASHER FEEDER Primary Care Provider [phone] Reason for Visit * Reason Onset Date Comments PAC Patient Request Call Back 08/27/2024 PAC Sick/Symptoms 08/27/2024 Encounter Details Date Type Department Care Team (Late st Contact Info) Description 08/27/2024 Telephone [facility] [address] [place] [address], Fourth [place] [address] Process Improvement Manager: Oly Juarez Telephone Intake, Staff PAC Patient Request Call Back; PAC Sick/Symptoms Social History Tobacco Use Types Packs/Day Years Used Date Smoking Tobacco: Never Assessed Comments Unknown Sex and Gender Information Value Date Recorded Sex Assigned at Female 06/09/2023 12:33 AM EST Legal Sex Female 10:44 AM EDT Gender Identity Female 06/09/2023 12:33 AM EST Sexual Orientation Straight 06/09/2023 12 :33 AM EST documented as of this encounter Miscellaneous Notes * Telephone Encounter - Steffany Maloney - 08/29/2024 11:49 AM EST Soonest appt scheduled. Patient added to wait list. Will reach out to patient if there is a sooner appointment. * Telephone Encounter - Jessica Sandy LPN - 08/28/2024 9:30 AM EST May I offer new patient apt for HS with you on 09/19/24 in MDA slot? * Telephone Encounter - Inga Benson - 08/27/2024 10:15 AM EST Pt calling stating that she was dx with HS by textiles printer and would like to be seen to address.She has been experiencing a fever of 100.4 only at night and is experiencing a flare up with severepain as well. Automobile Assembly Supervisor prescribed her spiractoline which has helped but still very painful. States it is on her scalp and under breasts and legs. Would like a call back to set up appt to be seen. Per dt sending te to admin to reach out to pt to schedule. documented in this encounter Plan of Treatment Upcoming Encounters Date Type Department Care Team (Late st Contact Info) Description 11/14/2024 2:30 PM EDT Office Visit [facility] [address]th [address] [facility] [address], [place] [address] Process Improvement Manager: Olga Lidia Mayers MD [address] [place] [phone] documented as of this encounter Visit Diagnoses Not on filedocumented in this encounter Care Teams Ms Sql Developer Relationship Specialty Start Date End Date Allie Galaviz NP [address] [place] [id number] PCP - General Family Medicine 08/27/24 documented as of this encounter
--- OUTSIDE RECORDS SUMMARY | 2024-09-26 14:56 | XMS_ITS | Encounter Summary ---
Author Organization [employer] Address [address] [place] [address] Care Team Providers Care Morning News Anchor Name Role Phone Key Martin Unavailable Allie Galaviz NP Primary Care Provider [phone] Encounter Details Date Type Department Care Team (Latest Contact Info) Description 09/24/2024 Travel Social History Tobacco Use Types Packs/Day Years [...] is your housing situation today? I have lakishapriyank edwards 06/02/[address] you [...] PM EST documented as of this encounter Plan of Treatment Upcoming Encounters Date Type Department Care Team (Late st Contact Info) Description 10/01/2024 4:20 PM EST Office Visit [facility] [address] [place] [phone] Veronica Serra FNP [address] [place] [address] documented as of this encounter Visit Diagnoses Not on filedocumented in this encounter Additional Health Concerns Assessment Noted Time PHQ-9 Depression Total Score: 24 023 4:48 PM EDT documented as of this encounter Care Teams Morning News Anchor Relationship Specialty Start Date End Date Allie Galaviz NP [address] [place] [address] PCP - General Family Medicine 05/10/23 Key Martin [address] [place] [address] [facility] 02/27/23 documented as of this encounter
--- OUTSIDE RECORDS SUMMARY | 2024-09-26 14:56 | XMS_ITS | Referral Summary ---
Author Organization [facility] Address [address] [place] [address] Care Team Providers Care Plant General Manager Name Role Phone Allie Galaviz BACK CLOSER Primary Care Provider [phone] Encounters Date Type Department Care Team Description 08/27/2024 Telephone [facility] [address] [place] [address], [place] [address] Cylinder Honer: Oly Juarez Telephone Intake, Staff PAC Patient Request Call Back; PAC Sick/Symptoms from Last 3 Months Allergies No known active allergies Medications clindamycin [...] Active Active Problems No known active problems Immunizations Immunization Administration Dates Next Due Covid-19, Pfizer, mRNA, [place] valent, PF 30 mcg/0.3 mL dose (for [...] Description 11/14/2024 2:30 PM EDT Office Visit [facility] 4th Floor [address] [facility], [place] [phone] Cylinder Honer: Olga Lidia Mayers MD [address] [place] [address] [place] [address] MEDICARE Care Teams Plant General Manager Relationship Specialty Start Date End Date Allie Galaviz NP [address] [place] [address] PCP - General Family Medicine 08/27/24
--- OUTSIDE RECORDS SUMMARY | 2024-09-26 14:56 | XMS_ITS | Encounter Summary ---
Author Organization [employer] Address [address] [place] [address] Care Team Providers Care Supervising Fire Marshal Name Role Phone Key Martin Unavailable Allie Galaviz RIG BUILDER HELPER Primary Care Provider [phone] Reason for Visit * Reason Comments Med Refill Encounter Details Date Type Department Care Team ([facility] st Contact Info) Description 09/25/2024 Refill [facility] [address] [place] [phone] Allie Galaviz NP [address] [place] [address] Social History Tobacco Use Types Packs/Day Years [...] your housing situation today? I have lakisha sing 06/02/[address] you li [...] Description 10/01/2024 4:20 PM EST Office Visit [address] [address] Veronica Serra FNP [address] [place] [address] documented as of this encounter Visit Diagnoses Not on filedocumented in this encounter Additional Health Concerns Assessment Noted Time PHQ-9 Depression Total Score: 24 023 4:48 PM EDT documented as of this encounter Care Teams Supervising Fire Marshal Relationship Specialty Start Date End Date Allie Galaviz NP [address] [place] [address] PCP - General Family Medicine 05/10/23 Key Martin [address] [place] [address] [facility] 02/27/23 documented as of this encounter
== END 2024-09-26 13:25 | disposition home or self-care (01) ==
PROVIDERS: PCP Internal Medicine Nephrology; Visit Provider Internal Medicine Rheumatology
DX: M45.8 Ankylosing spondylitis sacral and sacrococcygeal region (principal); M54.50 Low back pain, unspecified; M75.01 Adhesive capsulitis of right shoulder; M19.011 Primary osteoarthritis, right shoulder; M79.7 Fibromyalgia
CPT/HCPCS: 99215

== ENCOUNTER 2024-09-26 12:31 | Outpatient (REF) | payer MEDICARE, MEDICAID, SELFPAY ==
--- OUTSIDE RECORDS SUMMARY | 2024-09-26 16:16 | XMS_ITS | Encounter Summary ---
Author Organization [employer] Address [address] [place] [address] [place], [place] [address] Care Team Providers Care Entry Specialists Name Role Phone Key Martin Unavailable Allie Galaviz PEEL OVEN TENDER Primary Care Provider [phone] Reason for Referral * Imaging (Routine) - Authorized Specialty Diagnoses / Procedures Referred By Contnicole dias Referred To Contact Cardiology Diagnoses Shortness of breath Procedures Transthoracic echo (TTE) complete Allie Galaviz NP [address] [place], [place] Phone: tel: fax: Cardio/Pulmonary Dept, [facility] [address] [place], [place] Phone: tel: fax: Referral ID Status Reason Start Date Expiration Date Visits Requested Visits Authorized [id number] Authorized Perform Procedure 09/26/2024 09/26/2025 1 1 Reason for Visit * Reason Comments Follow-up Skin condition hydro denitis suppuritiva- wasn't able to get appt with [facility] until October. Cysts, sores, leaking wounds that are spreading. Visibly upset Encounter Details Date Type Department Care Team ([facility] Contact Info) Description 09/25/2024 3:40 PM EST Office Visit [facility] [address] [place] [phone] Allie Galaviz NP [address] [place] [address] Shortness of breath (Primary Dx); Rash; Iron [...] she was put on Leonard from the Senior Scrum Master helps - minimal swelling noted today DM2 [...] HOSPITAL This visit documentation was prepared using zzojx-mz-mfqi dictation software (ambient clinical notes). The patient's [...] Description 10/01/2024 4:20 PM EST Office Visit [address] [address] Veronica Serra FNP [address] [place] [address] Scheduled Orders Name Type Priority Associated Diagnoses [...] documented as of this encounter Care Teams Entry Specialists Relationship Specialty Start Date End Date Allie Galaviz NP [address] [place] [address] PCP - General Family Medicine 05/10/23 Key Martin [address] [place] [address] [facility] 02/27/23 documented as of this encounter
--- OUTSIDE RECORDS SUMMARY | 2024-09-26 16:16 | XMS_ITS | Clinical Summary ---
Author Organization [employer] Address [address] [place] [address] 7t [place] [address] Care Team Providers Care Chemistry Technical Officer Name Role Phone Key Martin Unavailable Allie Galaviz NP Primary Care Provider [phone] Allergies Active Allergy Reactions Criticality Noted Date [...] Dr. Neal at [facility] [place] Assessment & Plan (07/13/2023 10:39 AM EST): [...] With history of rectal fissure surgically repaired [facility]. Ongoing hemorrhoid discomfort, will refer back to [...] left practice, is in need of new Poultry Picking Machine Tender - will place urgent referral to assist in FELY visit Urticaria 11/03/2014 Allergic rhinitis 01/17/2012 Panic disorder 01/17/2012 Well controlled intermittent asthma 01/17/2012 Encounters Date Type Department Care Team Description 09/25/2024 3:40 PM EST Office Visit [address] [address] Allie Galaviz, JENELLE Shortness of breath (Primary Dx); Rash; Iron deficiency anemia, unspecified iron deficiency anemia type 09/25/[address] [address] Allie Galaviz NP 09/24/2024 Travel 08/04/[address] [address] Allie Galaviz NP 07/29/2024 Travel 07/23/[address] [address] Allie Galaviz NP 07/11/[address] [address] Tanja Phillips FNP 06/28/[address] [address] Allie Galaviz NP 06/28/[address] [address] Allie Galaviz NP from Last 3 Months [...] the past 12 months, has t he [employer], [employer], oil or water [employer] IS threatened to shut off services in your [...] Description 10/01/2024 4:20 PM EST Office Visit [facility] [address] [place] [address] Veronica Serra FNP [address] [place] [address] Health Maintenance Due Date Last Done Comments [...] acute abnormality. IMPRESSION: No acute abnormality. WSN: [id number] Ordering Physician: Veronica Serra Dictated By: ?Nestor [...] acute abnormality. IMPRESSION: No acute abnormality. WSN: [id number] Ordering Physician: Veronica Serra Dictated By: Nestor Goodwin MD, V Dictated Date/Time: 07/09/24 4:17 pm Reviewed By: Nestor Goodwin MD, V Signed By: Nestor Goodwin MD, V Signed Date/Time: 07/09/24 4:17 pm Transcribed By: JOSELO Transcribed Date/Time: 07/09/24 4:17 pm Veronica Serra INTERNET ECOMMERCE SPECIALIST IMG XR PROCEDURES Final Result * BI [...] (Benign) Lay letter mailed to patient WSN: [id number] Ordering Physician: Tati Bowens Dictated By: ?Kandy Lewis MD Dictated Date/Time: ?01/17/23 8:53 am Reviewed By: ?Kandy Lewis MD Signed By: ? Kandy Lewis MD Signed Date/Time: ? 01/17/23 8:53 am Transcribed By: ? CSB Legal Technician Date/Time: ? 01/17/23 8:50 am Birads: Procedure [...] (Benign) Lay letter mailed to patient WSN: [id number] Ordering Physician: Tati Bowens Dictated By: Kandy Lewis MD Dictated Date/Time: 01/17/23 8:53 am Reviewed By: Kandy Lewis MD Signed By: Kandy Lewis MD Signed Date/Time: 01/17/23 8:53 am Transcribed By: JOSELO Legal Technician Date/Time: 01/17/23 8:50 am Birads: Tati Bowens INTERNET ECOMMERCE SPECIALIST IMG BI PROCEDURES Final Result * Hm [...] Most Recently Relevant to Health Maintenance Insurance [facility] MEDIC[facility] Care Teams Chemistry Technical Officer Relationship Specialty Start Date End Date Allie Galaviz NP [address] [place] [address] PCP - General Family Medicine 05/10/23 Key Martin [address] [place], [place] [facility] 02/27/23
--- OUTSIDE RECORDS SUMMARY | 2024-09-26 16:16 | XMS_ITS | Encounter Summary ---
Author Organization [employer] Address [address] [place] [address] Care Team Providers Care Credit Assistant Name Role Phone Key Martin Unavailable Allie Galaviz COOK SPECIALTY FOREIGN FOOD Primary Care Provider [phone] Reason for Visit * Reason Comments Med Refill Encounter Details Date Type Department Care Team ([facility] st Contact Info) Description 09/25/2024 Refill [facility] [address] [place] [phone] Allie Galaviz NP [address] [place] [address] Social History Tobacco Use Types Packs/Day Years [...] Description 10/01/2024 4:20 PM EST Office Visit [address] [address] Veronica Serra FNP [address] [place] [address] documented as of this encounter Visit Diagnoses Not on filedocumented in this encounter Additional Health Concerns Assessment Noted Time PHQ-9 Depression Total Score: 24 023 4:48 PM EDT documented as of this encounter Care Teams Credit Assistant Relationship Specialty Start Date End Date Allie Galaviz NP [address] [place] [address] PCP - General Family Medicine 05/10/23 Key Martin [address] [place] [address] [facility] 02/27/23 documented as of this encounter
--- OUTSIDE RECORDS SUMMARY | 2024-09-26 16:16 | XMS_ITS | Continuity of Care Document ---
Author Organization [facility] Address [address] [facility] [address] [place], [place] Phone [phone] Care Team Providers Care Door Liner Name Role Phone Allie Galaviz CNP Care Team Information Truck Headlight Assembler Unavailable ANJANA PICHARDO M.D. Care Team Information [...] Pen-Inject 0.25 mg sub cutaneously every week z6zdxcv then 0.5/week as tolerated 3ml E11.9 Anjana Pichardo M.D. 07/19/2024 Vxwkcgmtptzqpt55qa Tablets take 1 tablet by mouth twice a day 180tabs E11.9 Anjana Pichardo M.D. 07/19/2024 Levothyroxine Ntpuuw88hel Tablets take 1 tablet by mouth every day 90tabs E06.3 Anjana Pichardo M.D. 06/29/2023 Neosporin Plus Pain Relief Maximum Strength3.5-06511-55 Cream multiple times a day Unknown Cyclobenzaprine HCL5mg Tablets prn Weston Neal MD Nacn-Acetyl L-Cystine(Selenium, B12) Unknown Mupirocin2% Ointment Unknown Clonidine HCL0.1mg Tablets White, Ivis, MANAGER CHEMICAL Shxjabxz895jp Tablets prn arm pain/stiff Weston Neal MD Tretinoin0.05% Cream 2-3x a week Unknown Hydroxyzine LUK24ww Tablets am dose as needed Unknown Mtzsbrvtnv30sz Tablets Take 1 am & 3 in pm Unknown Vitamin B Complex-CCapsules Daily Un known Bordbjn102rz Capsules as needed Unknown Lubricant Eye Drops0.4-0.3% Solution Unknown MultivitaminTablets 1/ day(contains iron) Unknown Benedryl prn only @hs Unknown 000 Fsguljqhxv6rf Tablets Take 1 Tablet By Mouth Once Or Twice Daily as Needed Unknown History Medications Freestyle Jessy 3 Plus/Sensor/Glucose Monitoring SystemMisc use to measure bs 4 or more times a day 6units E16.2 Anjana Pichardo M.D. 08/28/2024 - 09/03/2024 E11.9 Similac Alimentum Advance-IronLiquid take 65mg iron by mouth daily 30units Anjana Pichardo M.D. 06/29/2023 - 07/19/2024 Levothyroxine Yclvve17vvd Tablets 1 take tablet once daily 90tabs E06.3 Anjana Pichardo M.D. 11/23/2021 - 04/19/2022 Rbmgid-C40-064mr Tablets 1 tabs by mouth three times a day 90tabs D64.9 Anjana Pichardo M.D. 04/07/2020 - 03/15/2023 Levothyroxine Jjxcyj02boe Tablets Take 1&1/2 Tabs(37.5mcg) For 4 Days Per Week & 2Tabs(50mcg) For 3 Days A Week 90tabs E06.3 Anjana Pichardo M.D. 04/07/2020 - 11/23/2021 Levothyroxine Zdufrr59rxv Tablets 1 by mouth every day 90tabs E06.3 Anjana Pichardo M.D. 02/05/2020 - 04/07/2020 Cosentyx Sensoready Utt926ft/ml Solution Auto-Inject Mariel Fink MD - 04/19/2022 Escitalopram Ohnnght41zs Tablets Ivis Alejandra NP - 08/23/2024 Feso4 Liq 220mg/5ml-intolera nt Unknown - 08/23/2024 Doxycycline Zjentretkah173zd Capsules Allie Galaviz CNP - 08/23/2024 Paxlovid (300/100)20x 150 mg & 10 x 100mg TBPK Take 3 Tablets By Mouth Twice A Day For 5 Days Veronica Serra NP - 07/19/2024 Betamethasone Dipropionate Augmented0.05% Cream every other day or janice 3 or as needed Alex Blanco MD - 08/23/2024 Clindamycin Phosphate1% Lotion 2x day Tati Bowens NP - 08/23/2024 Vilazodone KIR05eu Tablets qd Ivis Alejandra NP - 08/23/2024 Levothyroxine Gcmyrw12qvv Tablets Take 1&1/2 Tabs(37.5mcg) By Mouth For 4 Days Per Week & 2Tabs(50mcg) For 3 Days A Week 90tabs E06.3 Anjana Pichardo M.D. - 06/29/2023 Aliquot/Tretinion/HC Powder apply to face Unknown - 03/15/2023 Hydroxychloroquine Hhgtmga172ct Tablets Take 2 Tablets By Mouth Every Day Mariel Fink MD - 08/23/2024 Amphetamine-Dextroamphet xvpcu60sy Tablets Take 1 Tablet By Mouth Twice A Day-stopped since not helpful Ivis Alejandra NP - 07/19/2024 Folic Olwv7gt Tablets Take 1 Tablet By Mouth Every Day Unknown - 03/15/2023 Vitamin D-325mcg (1000 Ut) Capsules take 1 capsule by mouth every day in the morning for dietary supplement Unknown - 03/15/2023 Vitamin C500mg Capsules 1 by mouth every day Unknown - 06/16/2020 Kgpigsq77gf Packet Unknown 0 - 02/05/2020 Fluzone Quadrivalent0.5ml Nurys To Be Administered By Pharmacist For Immunization Unknown - 06/16/2020 Hydroxyzine UYR19tz Tablets Take 1 Tablet By Mouth With Each Meal Unknown - 11/23/[address] Part Take 1 Capsule By Mouth Every Day Unknown - 09/18/2020 Trazodone YYL95dn Tablets Take 1 Tablet By Mouth Everyday AT Bedtime Unknown - 09/18/[address] Take 1 Capsule By Mouth Every Day Unknown - 07/19/2024 Prazosin HCL1mg Capsules Take 1 Capsule By Mouth Everyday AT Bedtime Unknown - 03/15/2023 Mrmqmohiwr7vv Tablets Take 1 Tablet By Mouth Every Day Unknown - 06/16/2020 Methotrexate2.5mg Tablets Take 6 Tablets By Mouth Every Week Unknown - 06/16/2020
--- OUTSIDE RECORDS SUMMARY | 2024-09-26 16:17 | XMS_ITS | Encounter Summary ---
Author Organization [employer] Address [address] [facility] [address] 7t [place] [address] Care Team Providers Care Bowling Ball Grader And Marker Name Role Phone Key Martin Unavailable Allie Galaviz NP Primary Care Provider [phone] Encounter Details Date Type Department Care Team [...] Description 10/01/2024 4:20 PM EST Office Visit [facility] [address] [place] [phone] Veronica Serra FNP [address] [place] [address] documented as of this encounter Visit Diagnoses Not on filedocumented in this encounter Additional Health Concerns Assessment Noted Time PHQ-9 Depression Total Score: 24 023 4:48 PM EDT documented as of this encounter Care Teams Bowling Ball Grader And Marker Relationship Specialty Start Date End Date Allie Galaviz NP [address] [place] [address] PCP - General Family Medicine 05/10/23 Key Martin [address] [place] [address] [facility] 02/27/23 documented as of this encounter
--- OUTSIDE RECORDS SUMMARY | 2024-09-26 16:17 | XMS_ITS | Encounter Summary ---
Author Organization [facility] Address [address] [place] [address] Care Team Providers Care Account Representative Name Role Phone Allie Galaviz CHIEF MEDICAL DIRECTOR Primary Care Provider [phone] Reason for Visit * Reason Onset Date Comments PAC Patient Request Call Back 08/27/2024 PAC Sick/Symptoms 08/27/2024 Encounter Details Date Type Department Care Team (Late st Contact Info) Description 08/27/2024 Telephone [facility] 4th [address] [place] [address], [place] [address] Shovel Engineer: Oly Juarez Telephone Intake, Staff PAC Patient [...] that she was dx with HS by multi purpose machine operator and would like to be seen to address.She has been experiencing a fever of 100.4 only at night and is experiencing a flare up with severepain as well. Curtain Mender prescribed her spiractoline which has helped but [...] Description 11/14/2024 2:30 PM EDT Office Visit [facility] 4th Floor [address] [facility], [place] [address] Shovel Engineer: Olga Lidia Mayers MD [address] [place] [address] documented as of this encounter Visit Diagnoses Not on filedocumented in this encounter Care Teams Account Representative Relationship Specialty Start Date End Date Allie Galaviz NP [address] [place] [address] PCP - General Family Medicine 08/27/24 documented as of this encounter
--- OUTSIDE RECORDS SUMMARY | 2024-09-26 16:17 | XMS_ITS | Clinical Summary ---
Author Organization [facility] Address [address] [place] [address] Care Team Providers Care Interactive Project Manager Name Role Phone Allie Galaviz PRODUCT EXPERT Primary Care Provider [phone] Allergies No known active allergies Medications clindamycin [...] Type Department Care Team Description 08/27/2024 Telephone [facility] 4th [address] [place] [address], [place] [address] Pick Up Attendant: Oly Juarez Telephone Intake, Staff PAC Patient Request Call Back; PAC Sick/Symptoms from Last 3 Months Immunizations Immunization Administration Dates Next Due Covid-19, Pfizer, mRNA, [place] valent, PF 30 mcg/0.3 mL dose (for [...] Description 11/14/2024 2:30 PM EDT Office Visit [facility] 4th Floor [address] [facility], [place] [address] Pick Up Attendant: Olga Lidia Mayers MD [address] [place] [address] Health Maintenance Due Date Last Done Comments [...] Patients (6-50 Years) Completed 09/06/2021, 04/29/2020 Insurance [facility] MEDICARE Care Teams Interactive Project Manager Relationship Specialty Start Date End Date Allie Galaviz NP [address] [place] [address] PCP - General Family Medicine 08/27/24
--- OUTSIDE RECORDS SUMMARY | 2024-09-26 16:17 | XMS_ITS | Referral Summary ---
Author Organization [facility] Address [address] [place] [address] Care Team Providers Care Police Lieutenant Patrol Name Role Phone Allie Galaviz STREETCAR CONDUCTOR Primary Care Provider [phone] Encounters Date Type Department Care Team Description 08/27/2024 Telephone [facility] [address]th [address] [place] [address], [place] [address] Scabbler: Oly Juarez Telephone Intake, Staff PAC Patient [...] Administration Dates Next Due Covid-19, Pfizer, mRNA, [place] valent, PF 30 mcg/0.3 mL dose (for [...] Description 11/14/2024 2:30 PM EDT Office Visit [facility] 4th Floor [address] [facility], [place] [phone] Scabbler: Olga Lidia Mayers MD [address] [place] [address] [place] [address] [address] MEDICARE Care Teams Police Lieutenant Patrol Relationship Specialty Start Date End Date Allie Galaviz NP [address] [place] [address] PCP - General Family Medicine 08/27/24
[2024-09-26 18:43] LABS: Alanine Aminotransferase 14 U/L (0-31); Aspartate Amino Transferase 27 U/L (5-31); C Reactive Protein 2.26 mg/dL (< or = 0.50); Estimated Glomerular Filt Rate > 60
[2024-09-26 19:06] LABS: Erythrocyte Sedimentation Rate 23 MM/HR (0-20)
== END 2024-09-26 12:32 | disposition home or self-care (01) ==
LOC: HO.HKASLDS 12:31
PROVIDERS: PCP Internal Medicine Nephrology; Visit Provider Internal Medicine Rheumatology
DX: Z13.89 Encounter for screening for other disorder (principal)
CPT/HCPCS: 36415; 82565; 84450; 84460; 85652; 86140

== ENCOUNTER 2024-09-26 14:26 | Outpatient (REF) | payer MEDICARE, MEDICAID, SELFPAY ==
--- NOTE | ~2024-09-26 | XR_ITS ---
CLINICAL HISTORY: M45.9 - Ankylosing spondylitis of unspecified sites in spine 3 views lumbar spine Comparison: None Findings: No fractures or spondylolisthesis. Small anterior vertebral body osteophytes L3-L4 Mild degenerative facet arthropathy L4-L5. Disc spaces are maintained. Pedicles and transverse processes intact. Lordotic curvature is preserved. Normal bone mineralization. Normal soft tissues. Sacroiliac joints unremarkable. Impression: 1. No compression fractures or spondylolisthesis. Mild degenerative facet arthropathy This document has been electronically signed by: Ion Andrews MD on 09/27/2024 09:46:37
--- NOTE | ~2024-09-26 | XR_ITS ---
CLINICAL HISTORY: M45.9 - Ankylosing spondylitis of unspecified sites in spine 2 views thoracic spine Comparison: None Findings: The vertebral body heights are preserved. No bridging syndesmophytes. Intervertebral disc spaces are maintained. No fractures are present. Pedicles intact. Paraspinal lines are normal. Normal Thoracic kyphosis. Normal bone mineralization. Impression: 1. No compression fractures or listhesis. 2. No bridging syndesmophytes This document has been electronically signed by: Ion Andrews MD on 09/27/2024 09:42:03
--- NOTE | ~2024-09-26 | XR_ITS ---
CLINICAL HISTORY: M45.9 - Ankylosing spondylitis of unspecified sites in spine 3 views sacroiliac joints Comparison: None Findings: No fractures or malalignment. No joint space widening, erosions, sclerosis or ankylosis. Bone mineralization and soft tissues within normal limits. No unusual radiopaque foreign bodies. Impression: 1. Normal sacroiliac joints. This document has been electronically signed by: Ion Andrews MD on 09/27/2024 09:43:52
--- NOTE | ~2024-09-26 | XR_ITS ---
CLINICAL HISTORY: M25.511 - Pain in right shoulder 3 view right shoulder Comparison: None Findings: Normal congruency of the glenohumeral joint. Minimal spurring inferiorly Mild AC joint arthrosis No fractures or bony erosions. No greater tuberosity cysts. Normal bone mineralization and soft tissues. No radiopaque foreign body. Normal visualized right chest. Impression: 1. No fracture, subluxations or dislocations right shoulder. 2. Mild AC joint arthrosis without undersurface spurring 3. Minimal spurring along the inferior aspect of the glenohumeral joint This document has been electronically signed by: Ion Andrews MD on 09/27/2024 09:38:12
--- OUTSIDE RECORDS SUMMARY | 2024-09-26 17:39 | XMS_ITS | Clinical Summary ---
Author Organization [facility] Address [address] [place] [address] Care Team Providers Care Washroom Operator Name Role Phone Allie Galaviz OCCUPATIONAL HEALTH AND SAFETY OFFICER Primary Care Provider [phone] Allergies No known active allergies Medications clindamycin [...] Type Department Care Team Description 08/27/2024 Telephone [facility] [address]th [address] [place] [address], Fourth [place] [address] Physical Therapy Technician: Oly Juarez Telephone Intake, Staff PAC Patient Request Call Back; PAC Sick/Symptoms from Last 3 Months Immunizations Immunization Administration Dates Next Due Covid-19, Pfizer, mRNA, [place] valent, PF 30 mcg/0.3 mL dose (for [...] Description 11/14/2024 2:30 PM EDT Office Visit [facility] 4th Floor [address] [facility], Fourth [place] [address] Physical Therapy Technician: Olga Lidia Mayers MD [address] [place] [address] Health Maintenance Due Date Last Done Comments [...] Patients (6-50 Years) Completed 09/06/2021, 04/29/2020 Insurance [facility] MEDICARE Care Teams Washroom Operator Relationship Specialty Start Date End Date Allie aGlaviz NP [address] [place] [address] PCP - General Family Medicine 08/27/24
--- OUTSIDE RECORDS SUMMARY | 2024-09-26 17:39 | XMS_ITS | Clinical Summary ---
Author Organization [employer] Address [address] [place] [address] 7[address] [place] [address] Care Team Providers Care Pulp Piler Name Role Phone Key Martin Unavailable Allie Galaviz NP Primary Care Provider [phone] Allergies Active Allergy Reactions Criticality Noted Date [...] Dr. Neal at [facility] [place] Assessment & Plan (07/13/2023 10:39 AM EST): [...] With history of rectal fissure surgically repaired [facility]. Ongoing hemorrhoid discomfort, will refer back to [...] left practice, is in need of new Stack Matcher - will place urgent referral to assist in [facility] visit Urticaria 11/03/2014 Allergic rhinitis 01/17/2012 Panic disorder 01/17/2012 Well controlled intermittent asthma 01/17/2012 Encounters Date Type Department Care Team Description 09/25/2024 3:40 PM EST Office Visit [address] [address] Allie Galaviz, JENELLE Shortness of breath (Primary Dx); Rash; Iron deficiency anemia, unspecified iron deficiency anemia type 09/25/[address] [address] Allie Galaviz NP 09/24/2024 Travel 08/04/[address] [address] Allie Galaviz NP 07/29/2024 Travel 07/23/[address] [address] Allie Galaviz NP 07/11/[address] [address] Tanja Phillips FNP 06/28/[address] [address] Allie Galaviz NP 06/28/[address] [phone] Allie Galaviz NP from Last 3 Months [...] the past 12 months, has t he [employer], [employer], oil or water [email or web address] threatened to shut off services in your [...] 10/01/2024 4:20 PM EST Office Visit [facility] [address] [place] [address] Veronica Serra FNP [address] [place] [address] Health Maintenance Due Date Last Done Comments [...] acute abnormality. IMPRESSION: No acute abnormality. WSN: [id number] Ordering Physician: Veronica Serra Dictated By: ?Nestor [...] acute abnormality. IMPRESSION: No acute abnormality. WSN: [id number] Ordering Physician: Veronica Serra Dictated By: Nestor Goodwin MD, V Dictated Date/Time: 07/09/24 4:17 pm Reviewed By: Nestor Goodwin MD, V Signed By: Nestor Goodwin MD, V Signed Date/Time: 07/09/24 4:17 pm Transcribed By: JOSELO Transcribed Date/Time: 07/09/24 4:17 pm Veronica Serra CASHIER ASSISTANT IMG XR PROCEDURES Final Result * BI [...] (Benign) Lay letter mailed to patient WSN: [id number] Ordering Physician: Tati Bowens Dictated By: ?Kandy Lewis MD Dictated Date/Time: ?01/17/23 8:53 am Reviewed By: ?Kandy Lewis MD Signed By: ? Kandy Lewis MD Signed Date/Time: ? 01/17/23 8:53 am Transcribed By: ? CSB Learning And Development Manager Date/Time: ? 01/17/23 8:50 am Birads: Procedure [...] (Benign) Lay letter mailed to patient WSN: [id number] Ordering Physician: Tati Bowens Dictated By: Kandy Lewis MD Dictated Date/Time: 01/17/23 8:53 am Reviewed By: Kandy Lewis MD Signed By: Kandy Lewis MD Signed Date/Time: 01/17/23 8:53 am Transcribed By: JOSELO Learning And Development Manager Date/Time: 01/17/23 8:50 am Birads: Tati Bowens CASHIER ASSISTANT IMG BI PROCEDURES Final Result * Hm [...] Most Recently Relevant to Health Maintenance Insurance [facility] STANDARD MEDICARE Care Teams Pulp Piler Relationship Specialty Start Date End Date Allie Galaviz NP [address] [place] [address] PCP - General Family Medicine 05/10/23 Key Martin [address] [place], [place] [facility] 02/27/23
--- OUTSIDE RECORDS SUMMARY | 2024-09-26 17:39 | XMS_ITS | Encounter Summary ---
Author Organization [employer] Address [address] 7[address] [place] [address] Care Team Providers Care Clinic Office Manager Name Role Phone Key Martin Unavailable Allie Galaviz NP Primary Care Provider [phone] Encounter Details Date Type Department Care Team [...] 10/01/2024 4:20 PM EST Office Visit [facility] [address] [place] [phone] Veronica Serra FNP [address] [place] [address] documented as of this encounter Visit Diagnoses Not on filedocumented in this encounter Additional Health Concerns Assessment Noted Time PHQ-9 Depression Total Score: 24 023 4:48 PM EDT documented as of this encounter Care Teams Clinic Office Manager Relationship Specialty Start Date End Date Allie Galaviz NP [address] [place] [address] PCP - General Family Medicine 05/10/23 Key Martin [address] [place] [address] [facility] 02/27/23 documented as of this encounter
--- OUTSIDE RECORDS SUMMARY | 2024-09-26 17:39 | XMS_ITS | Continuity of Care Document ---
Author Organization [employer] Address [address] [place], [place] Phone [phone] Care Team Providers Care Core Checker Name Role Phone Allie Galaviz CNP Care Team Information Equalizing Saw Operator Unavailable ANJANA PICHARDO M.D. Care Team Information [...] Pen-Inject 0.25 mg sub cutaneously every week t6ftujt then 0.5/week as tolerated 3ml E11.9 Anjana Pichardo M.D. 07/19/2024 Xzrbsuphmgqiax78ia Tablets take 1 tablet by mouth twice a day 180tabs E11.9 Anjana Pichardo M.D. 07/19/2024 Levothyroxine Kocdlh81yax Tablets take 1 tablet by mouth every day 90tabs E06.3 Anjana Pichardo M.D. 06/29/2023 Neosporin Plus Pain Relief Maximum Strength3.5-51613-15 Cream multiple times a day Unknown Cyclobenzaprine HCL5mg Tablets prn Weston Neal MD Nacn-Acetyl L-Cystine(Selenium, B12) Unknown Mupirocin2% Ointment Unknown Clonidine HCL0.1mg Tablets White, Ivis, NEW GRAD RN Wjeujijd082ey Tablets prn arm pain/stiff Weston Neal MD Tretinoin0.05% Cream 2-3x a week Unknown Hydroxyzine WRT85vc Tablets am dose as needed Unknown Kqsoafvtpx84za Tablets Take 1 am & 3 in pm Unknown Vitamin B Complex-CCapsules Daily Un known Oafjnlh958kg Capsules as needed Unknown Lubricant Eye Drops0.4-0.3% Solution Unknown MultivitaminTablets 1/ day(contains iron) Unknown Benedryl prn only @hs Unknown 000 Xivdncgozs8hm Tablets Take 1 Tablet By Mouth Once Or Twice Daily as Needed Unknown History Medications Freestyle Jessy 3 Plus/Sensor/Glucose Monitoring SystemMisc use to measure bs 4 or more times a day 6units E16.2 Anjana Pichardo M.D. 08/28/2024 - 09/03/2024 E11.9 Similac Alimentum Advance-IronLiquid take 65mg iron by mouth daily 30units Anjana Pichardo M.D. 06/29/2023 - 07/19/2024 Levothyroxine Pjjmfy42apd Tablets 1 take tablet once daily 90tabs E06.3 Anjana Pichardo M.D. 11/23/2021 - 04/19/2022 Vijqns-J71-733cf Tablets 1 tabs by mouth three times a day 90tabs D64.9 Anjana Pichardo M.D. 04/07/2020 - 03/15/2023 Levothyroxine Phjpby77xsk Tablets Take 1&1/2 Tabs(37.5mcg) For 4 Days Per Week & 2Tabs(50mcg) For 3 Days A Week 90tabs E06.3 Anjana Pichardo M.D. 04/07/2020 - 11/23/2021 Levothyroxine Zhooyz16ukr Tablets 1 by mouth every day 90tabs E06.3 Anjana Pichardo M.D. 02/05/2020 - 04/07/2020 Cosentyx Sensoready Cym605mm/ml Solution Auto-Inject Mariel Fink MD - 04/19/2022 Escitalopram Nywkatk02cq Tablets Ivis Alejandra NP - 08/23/2024 Feso4 Liq 220mg/5ml-intolera nt Unknown - 08/23/2024 Doxycycline Izmzgkobncb978bf Capsules Allie Galaviz CNP - 08/23/2024 Paxlovid (300/100)20x 150 mg & 10 x 100mg TBPK Take 3 Tablets By Mouth Twice A Day For 5 Days Veronica Serra NP - 07/19/2024 Betamethasone Dipropionate Augmented0.05% Cream every other day or janice 3 or as needed Alex Blanco MD - 08/23/2024 Clindamycin Phosphate1% Lotion 2x day Tati Bowens NP - 08/23/2024 Vilazodone XJG95mx Tablets qd Ivis Alejandra NP - 08/23/2024 Levothyroxine Vkauqq78uke Tablets Take 1&1/2 Tabs(37.5mcg) By Mouth For 4 Days Per Week & 2Tabs(50mcg) For 3 Days A Week 90tabs E06.3 Anjana Pichardo M.D. - 06/29/2023 Aliquot/Tretinion/HC Powder apply to face Unknown - 03/15/2023 Hydroxychloroquine Yspowqr888sm Tablets Take 2 Tablets By Mouth Every Day Mariel Fink MD - 08/23/2024 Amphetamine-Dextroamphet whhtr55tb Tablets Take 1 Tablet By Mouth Twice A Day-stopped since not helpful Ivis Alejandra NP - 07/19/2024 Folic Cdjh5fk Tablets Take 1 Tablet By Mouth Every Day Unknown - 03/15/2023 Vitamin D-325mcg (1000 Ut) Capsules take 1 capsule by mouth every day in the morning for dietary supplement Unknown - 03/15/2023 Vitamin C500mg Capsules 1 by mouth every day Unknown - 06/16/2020 Izvdvwd04dd Packet Unknown 0 - 02/05/2020 Fluzone Quadrivalent0.5ml Nurys To Be Administered By Pharmacist For Immunization Unknown - 06/16/2020 Hydroxyzine WMJ43ys Tablets Take 1 Tablet By Mouth With Each Meal Unknown - 11/23/[address] Part Take 1 Capsule By Mouth Every Day Unknown - 09/18/2020 Trazodone ZVJ53zr Tablets Take 1 Tablet By Mouth Everyday AT Bedtime Unknown - 09/18/[address] Take 1 Capsule By Mouth Every Day Unknown - 07/19/2024 Prazosin HCL1mg Capsules Take 1 Capsule By Mouth Everyday AT Bedtime Unknown - 03/15/2023 Lbezgffjed5ks Tablets Take 1 Tablet By Mouth Every Day Unknown - 06/16/2020 Methotrexate2.5mg Tablets Take 6 Tablets By Mouth Every Week Unknown - 06/16/2020
--- OUTSIDE RECORDS SUMMARY | 2024-09-26 17:39 | XMS_ITS | Referral Summary ---
Author Organization [facility] Address [address] [place] [address] Care Team Providers Care Traffic Control Flagger Name Role Phone Allie Galaviz VENDING STAND SUPERVISOR Primary Care Provider [phone] Encounters Date Type Department Care Team Description 08/27/2024 Telephone [facility] [address]th [address] [place] [address], [place] [address] Cardiovascular Specialist: Oly Juarez Telephone Intake, Staff PAC Patient [...] Administration Dates Next Due Covid-19, Pfizer, mRNA, [place] valent, PF 30 mcg/0.3 mL dose (for [...] Description 11/14/2024 2:30 PM EDT Office Visit [facility] 4th Floor [address] [facility], [place] [phone] Cardiovascular Specialist: Olga Lidia Mayers MD [address] [place] [address] [place] [address] MEDICARE Care Teams Traffic Control Flagger Relationship Specialty Start Date End Date Allie Galaviz NP [address] [place] [address] PCP - General Family Medicine 08/27/24
--- OUTSIDE RECORDS SUMMARY | 2024-09-26 17:39 | XMS_ITS | Encounter Summary ---
Author Organization [employer] Address [address] [place] [address] Care Team Providers Care Information Systems Audit Manager Name Role Phone Key Martin Unavailable Allie Galaviz MARINE ELECTRICIAN Primary Care Provider [phone] Reason for Visit * Reason Comments Med Refill Encounter Details Date Type Department Care Team ([facility] st Contact Info) Description 09/25/2024 Refill [facility] [address] [place] [phone] Allie Galaviz NP [address] [place] [address] Social History Tobacco Use Types Packs/Day Years [...] Description 10/01/2024 4:20 PM EST Office Visit [address] [address] Veronica Serra FNP [address] [place] [address] documented as of this encounter Visit Diagnoses Not on filedocumented in this encounter Additional Health Concerns Assessment Noted Time PHQ-9 Depression Total Score: 24 023 4:48 PM EDT documented as of this encounter Care Teams Information Systems Audit Manager Relationship Specialty Start Date End Date Allie Galaviz NP [address] [place] [address] PCP - General Family Medicine 05/10/23 Key Martni [address] [place] [address] [facility] 02/27/23 documented as of this encounter
--- OUTSIDE RECORDS SUMMARY | 2024-09-26 17:39 | XMS_ITS | Encounter Summary ---
Author Organization [employer] Address [address] [place] [address] [address], [place] [address] Care Team Providers Care Weighter Name Role Phone Key Martin Unavailable Allie Galaviz STUDY ASSISTANT Primary Care Provider [phone] Reason for Referral * Imaging (Routine) - Authorized Specialty Diagnoses / Procedures Referred By Contnicole dais Referred To Contact Cardiology Diagnoses Shortness of breath Procedures Transthoracic echo (TTE) complete Allie Galaviz NP [address] [place], [place] Phone: tel: fax: Cardio/Pulmonary Dept, [facility] [address] [place], [place] Phone: tel: fax: Referral ID Status Reason Start Date Expiration Date Visits Requested Visits Authorized [id number] Authorized Perform Procedure 09/26/2024 09/26/2025 1 1 Reason for Visit * Reason Comments Follow-up Skin condition hydro denitis suppuritiva- wasn't able to get appt with [facility] until October. Cysts, sores, leaking wounds that are spreading. Visibly upset Encounter Details Date Type Department Care Team ([facility] Contact Info) Description 09/25/2024 3:40 PM EST Office Visit [facility] [address] [place] [phone] Allie Galaviz NP [address] [place] [address] Shortness of breath (Primary Dx); Rash; Iron [...] she was put on Leonard from the [employer] Machine Operator helps - minimal swelling noted today DM2 [...] Department Center 10/01/2024 4:20 PM [facility] This visit documentation was prepared using qzcvl-qc-janr dictation software (ambient clinical notes). The patient's [...] Description 10/01/2024 4:20 PM EST Office Visit [address] [address] Veronica Serra FNP [address] [place] [address] Scheduled Orders Name Type Priority Associated Diagnoses [...] documented as of this encounter Care Teams Weighter Relationship Specialty Start Date End Date Allie Galaviz NP [address] [place] [address] PCP - General Family Medicine 05/10/23 Key Martin [address] [place] [address] [facility] 02/27/23 documented as of this encounter
--- OUTSIDE RECORDS SUMMARY | 2024-09-26 17:39 | XMS_ITS | Encounter Summary ---
Author Organization [facility] Address [address] [place] [address] Care Team Providers Care Promotions Associate Name Role Phone Allie Galaviz EDUCATION DIAGNOSTICIAN Primary Care Provider [phone] Reason for Visit * Reason Onset Date Comments PAC Patient Request Call Back 08/27/2024 PAC Sick/Symptoms 08/27/2024 Encounter Details Date Type Department Care Team (Late st Contact Info) Description 08/27/2024 Telephone [facility] [address] [place] [address], [place] [address] Corporate Safety Director: Oly Juarez Telephone Intake, Staff PAC Patient [...] that she was dx with HS by chief station engineer and would like to be seen to address.She has been experiencing a fever of 100.4 only at night and is experiencing a flare up with severepain as well. Lead Recoverer prescribed her spiractoline which has helped but [...] Description 11/14/2024 2:30 PM EDT Office Visit [facility] 4th Floor [address] [facility], [place] [address] Corporate Safety Director: Olga Lidia Mayers MD [address] [place] [address] documented as of this encounter Visit Diagnoses Not on filedocumented in this encounter Care Teams Promotions Associate Relationship Specialty Start Date End Date Allie Galaviz NP [address] [place] [address] PCP - General Family Medicine 08/27/24 documented as of this encounter
== END 2024-09-26 14:27 | disposition home or self-care (01) ==
LOC: HO.HMGCX 14:26
PROVIDERS: PCP Nurse Practitioner Family; Visit Provider Internal Medicine Rheumatology
DX: M45.9 Ankylosing spondylitis of unspecified sites in spine (principal); M25.511 Pain in right shoulder
CPT/HCPCS: 36415; 72070; 72100; 72202; 73030; 82565; 84450; 84460; 85652; 86140

== ENCOUNTER → 2024-09-26 14:29 | Outpatient (BNV) | payer MEDICARE, MEDICAID, SELFPAY | PROVIDERS: PCP Nurse Practitioner Family; Visit Provider Radiology Diagnostic Radiology | DX: M45.9 Ankylosing spondylitis of unspecified sites in spine (principal); M25.511 Pain in right shoulder | CPT/HCPCS: 72070; 72100; 72202; 73030 ==

== ENCOUNTER 2024-11-02 18:19 | Outpatient (REF) | payer MEDICARE, MEDICAID, SELFPAY ==
--- NOTE | ~2024-11-02 | MR_ITS ---
CLINICAL HISTORY: M45.9 - Ankylosing spondylitis of unspecified sites in spine Exam: MRI of the pelvis without intravenous contrast. Comparison: Radiographs september 26, 2024. Findings: Sacroiliac joints are anatomically aligned. No erosions are identified. No findings to suggest pre erosive disease. Specifically, no juxta-articular bone edema seen on either the iliac or sacral size of the sacroiliac joints No fracture or bone marrow signal alteration is identified. Disc height and hydration status is appropriate at L4-5 and L5-S1. No muscle edema atrophy. Pubic rami unremarkable. Hip joints are unremarkable. Impression: Negative MRI of the pelvis. Specifically, no findings of erosive or pre erosive disease of the sacroiliac joints. This document has been electronically signed by: Ezequiel Neil MD on 11/04/2024 10:00:04
--- OUTSIDE RECORDS SUMMARY | 2024-11-02 18:32 | XMS_ITS | Clinical Summary ---
Author Organization [employer] Address [address] [place] [address] [address] [place] [address] Care Team Providers Care Merchandiser Retail Representative Name Role Phone Key Martin Unavailable Allie Galaviz NP Primary Care Provider [phone] Allergies Active Allergy Reactions Criticality Noted Date Comments Hydrocodone-Acetaminophen Hives,Rash High 01/17/2012 Other reaction(s): Skin Rashes, Hives Methotrexate Swelling 05/21/2021 Peeling of skin, hives, arthralgias, myalgias, weakness, pleural effusion Oxcarbazepine Rash Low 05/13/2016 Muscle wasting Polymyxin B-Trimethoprim 08/25/2022 Sulfa Antibiotics Hives 05/13/2016 Sulfamethoxazole 08/25/2022 Trazodone 08/27/2020 Other reaction(s): foggy and groggy Medications chlorhexidine (Hibiclens) 4 % external liquidIndications :Folliculitis Apply topically if needed each day for wound care. 946 mL 11 3 Active clonazePAM (KlonoPIN) 1 MG tablet Take 1 mg by mouth if needed in the morning and at bedtime. 3 Active hydrOXYzine HCl (Atarax) 50 MG tablet TAKE ONE (1) TABLET BY MOUTH TWICE A DAY, NEEDED FOR ANXIETY/INSOM REY/ITCHING 2 Active topiramate (Topamax) 25 MG tablet TAKE ONE (1) TABLET BY MOUTH EVERY MORNING AND THREE (3) TABLETS AT BEDTIME 12/19/202 2 Active tretinoin (Retin-A) 0.05 % cream 3 Active amphetamine-dextr oamphetamine (Adderall) 30 MG tablet TAKE ONE (1) TABLET BY MOUTH EVERY MORNING AND ONE HALF (0.5) TABLETS EVERY AFTERNOON 3 Active cyclobenzaprine (Flexeril) 5 MG tablet Take 5 mg by mouth at bedtime. 3 Active mupirocin (Bactroban) 2 % ointmentIndicatio ns:Follicular disorder, unspecified APPLY TOPICALLY 3 TIMES DAILY FOR 10 DAYS TO AFFECTED AREA(S) 22 g 11 4 Active loratadine (Claritin) 10 MG tablet Take 1 tablet (10 mg) by mouth in the morning. 90 tablet 3 4 Active Hibiclens 4 % solution APPLY TOPICALLY IF NEEDED EACH DAY FOR WOUND CARE. 944 mL 11 4 Active semaglutide (Ozempic, 0.25 or 0.5 MG/DOSE,) 2 MG/1.5ML solution pen-injector 5 Active spironolactone (Aldactone) 25 MG tablet 4 Active Cymbalta [address] capsule 5 Active silver sulfADIAZINE (Silvadene) 1 % creamIndications: Rash Apply topically Once per day. 400 g 1 5 Active ascorbic acid (Vitamin C) 500 MG tabletIndications :Iron deficiency anemia due to chronic blood loss Take 1 tablet (500 mg) by mouth Once per day. 30 tablet 11 5 10/02/19 26 Active doxycycline (Monodox) 100 MG capsuleIndication s:Rash Take 1 capsule (100 mg) by mouth 2 times daily for 21 days. 42 capsule 5 10/18/19 25 Active Problems Problem Noted Date Diagnosed Date [...] Dr. Neal at [facility] [place] Assessment & Plan (07/13/2023 10:39 AM EST): [...] With history of rectal fissure surgically repaired [facility]. Ongoing hemorrhoid discomfort, will refer back [...] left practice, is in need of new Tank Truck Milk Receiver - will place urgent referral to assist in FELY visit Urticaria 11/03/2014 Allergic rhinitis 01/17/2012 Panic disorder 01/17/2012 Well controlled intermittent asthma 01/17/2012 Encounters Date Type Department Care Team Description 10/01/2024 Orders Only [address] [phone] Allie Galaviz NP Iron deficiency anemia due to chronic blood loss (Primary Dx) 09/25/2024 3:40 PM EST Office Visit [address] [phone] Allie Galaviz NP Shortness of breath (Primary Dx); Rash; Iron deficiency anemia, unspecified iron deficiency anemia type 09/25/[address] [phone] Allie Galaviz NP 09/24/2024 Travel 08/04/[address] [phone] Allie Galaviz NP from Last 3 Months Immunizations Name Administration Dates Next Due Hep B, adult 08/23/2005,07/29/2004,10/01/2001 Influenza Injectable Quadriv alant Preservative Free IIV4 MDCK 04/17/2020 Influenza injectable quadriv alent IIV4 with preservative 04/24/2018,04/16/2015,06/10/2014 Influenza injectable quadriv alent preservative free 07/13/2023,05/18/2022,09/02/2019 Influenza, Unspecified 02/05/2024 Pfizer Covid-19 Vaccine 12+ 10/07/2020, Pneumococcal Conjugate [...] 06/14/2024 2:57 PM EST Plan of Treatment Health Maintenance Due Date Last Done Comments CT Colonography 1977 FIT DNA/Cologuard 1977 FIT 1977 FOBT 1977 HIV Screening 1975 Sigmoidoscopy 1977 Family Planning (PISQ) 01/21/1992 [...] Procedure Name Priority Date/Time Associated Diagnosis Comments IRON, TIBC AND FERRITIN PANEL Routine 09/27/2024 4:31 PM EST COMPREHENSIVE METABOLIC PANEL Routine 09/27/2024 4:31 PM EST Shortness of breath CBC Routine 09/27/2024 4:31 PM EST Shortness of breath Iron deficiency anemia, unspecified iron deficiency anemia type BI MAMMOGRAM SCREENING TOMOSYNTHESIS BILATERAL Routine 01/16/2023 5:12 PM EDT HM PAP/HPV Routine 04/07/2022 HM HEPATITIS C ANTIBODY Routine 09/14/2021 COLONOSCOPY Routine 10/03/2019 12:00 AM EST from Last 3 Months or Most Recently Relevant to Health Maintenance Results * (ABNORMAL) Iron, TIBC And Ferritin Panel (09/27/2024 4:31 PM EST) Pathologist [facility] Iron, Total 14(L) 40 - 190 mcg/dL [facility] Iron Binding Capacity 361 250 - 450 mcg/dL (calc) [facility] % Saturation 4(L) 16 - 45 % (calc) [facility] Ferritin 6(L) 16 - 232 ng/mL [facility] 09/27/2024 4:31 PM EST 09/27/2024 4:32 PM EST Narrative [facility] - 09/28/2024 5:24 PM EST FASTING:NO FASTING: NO Allie Galaviz LEVERS LACE MACHINE OPERATOR LAB BLOOD ORDERABLES Final Resul t [facility] [address], [place] [address] [facility] [address] [place] [address] * (ABNORMAL) CBC (09/27/2024 4:31 PM EST) [facility] White Blood Cell Count 9.9 3.8 - 10.8 Thousand/ uL [facility] Red Blood Cell Count 4.34 3.80 - 5.10 Million/u L [facility] Hemoglobin 9.2(L) 11.7 - 15.5 g/dL [facility] Hematocrit 31.2(L) 35.0 - 45.0 % [facility] MCV 71.9(L) 80.0 - 100.0 fL [facility] MCH 21.2(L) 27.0 - 33.0 pg [facility] MCHC 29.5(L) 32.0 - 36.0 g/dL [facility] Comment: For adults, a slight decrease in the calculated MCHC value (in the range of 30 to 32 g/dL) is most likely not clinically significant; however, it should be interpreted with caution in correlation with other red cell parameters and the patient's clinical condition. RDW 21.0(H) 11.0 - 15.0 % [facility] Platelet Count 479(H) 140 - 400 Thousand/ uL [facility] MPV 10.9 7.5 - 12.5 fL [facility] Blood Venous blood specimen / Unknown 09/27/2024 4:31 PM EST 09/27/2024 4:32 PM EST Narrative [facility] - 09/28/2024 5:24 PM EST FASTING:NO FASTING: NO Allie Galaviz NP LAB BLOOD ORDERABLES Final Resul t [facility] [address], [place] [address] [facility] [address] [place] [address] * Comprehensive Metabolic Panel (09/27/2024 4:31 PM EST) Glucose 99 65 - 139 mg/dL [facility] Comment: ? Non-fasting reference interval Urea Nitrogen (BUN) 9 7 - 25 mg/dL [facility] Creatinine, Serum 0.55 0.50 - 0.99 mg/dL [facility] eGFR 114 > OR = 60 mL/min/1. 73m2 [facility] BUN/Creatinine Ratio SEE NOTE: 6 22 (calc) [facility] Comment: ?? Not Reported: BUN and Creatinine are within ?? reference range. ? Sodium 142 135 - 146 mmol/L [facility] Comment: Verified by repeat analysis. Potassium 4.0 3.5 - 5.3 mmol/L [facility] Chloride 110 98 - 110 mmol/L [facility] Carbon Dioxide 23 20 - 32 mmol/L [facility] Calcium 8.9 8.6 - 10.2 mg/dL [facility] Comment: Verified by repeat analysis. Protein, Total 6.8 6.1 - 8.1 g/dL [facility] Albumin 4.2 3.6 - 5.1 g/dL [facility] Globulin 2.6 1.9 - 3.7 g/dL (calc) [facility] [place] [facility] Albumin/Globuli n Ratio 1.6 1.0 - 2.5 (calc) [facility] Bilirubin, Total 0.2 0.2 - 1.2 mg/dL [facility] Alkaline Phosphatase 65 31 - 125 U/L [facility] AST 15 10 - 35 U/L [facility] ALT 12 6 - 29 U/L [facility] Blood Venous blood specimen / Unknown 09/27/2024 4:31 PM EST 09/27/2024 4:32 PM EST Narrative [facility] - 09/28/2024 5:24 PM EST FASTING:NO FASTING: NO Allie Galaviz NP LAB BLOOD ORDERABLES Final Resul t [facility] [address], [place] [address] [facility] [address] [place] [address] * BI Mammogram Screening Tomosynthesis Bilateral (01/16/2023 [...] (Benign) Lay letter mailed to patient WSN: [id number] Ordering Physician: Tati Bowens Dictated By: ?Kandy Lewis MD Dictated Date/Time: ?01/17/23 8:53 am Reviewed By: ?Kandy Lewis MD Signed By: ? Kandy Lewis MD Signed Date/Time: ? 01/17/23 8:53 am Transcribed By: ? CSB [place] Program Coordinator Date/Time: ? 01/17/23 8:50 am Birads: Procedure Note Donrosmeryter, Image - 01/17/2023 PROCEDURE: MM Digital Mammo [...] (Benign) Lay letter mailed to patient WSN: [id number] Ordering Physician: Tati Bowens Dictated By: Kandy Lewis MD Dictated Date/Time: 01/17/23 8:53 am Reviewed By: Kandy Lewis MD Signed By: Kandy Lewis MD Signed Date/Time: 01/17/23 8:53 am Transcribed By: CSElizabet [place] Program Coordinator Date/Time: 01/17/23 8:50 am Birads: Tati Bowens CLOTH TEARER IMG BI PROCEDURES Final Result * Pap Smear (04/07/2022) Pap Negative for intraephithelial lesion or malignancy Negative for intraephithelial lesion or malignancy, Other HPV Undetected Historical Provider HEALTH MAINTENANCE Final Result * Hepatitis C Antibody (09/14/2021) Hepatitis C Antibody Nonreactive Blood Historical Provider HEALTH MAINTENANCE Final Result * Colonoscopy (10/03/2019 12:00 AM EST) Anatomical Region Laterality Modality Endoscopy 10/03/2019 Narrative 10/03/2019 12:00 AM EST Refer to the Notes tab for result details [facility] Procedure: Colonoscopy Procedure Note ProviderGregory MD - 10/22/2022 Refer to the Notes tab for result details [facility] Procedure: Colonoscopy Historical Provider ENDOSCOPY PROCEDURE ORDER SYDNIE Final Result from Last 3 Months or Most Recently Relevant to Health Maintenance Insurance [facility] STANDARD MEDICARE Care Teams Merchandiser Retail Representative Relationship Specialty Start Date End Date Allie Galaviz NP [address] [place] [id number] PCP - General Family Medicine 05/10/23 Key Martin [address] [phone] [facility] 02/27/23
--- OUTSIDE RECORDS SUMMARY | 2024-11-02 18:32 | XMS_ITS | Continuity of Care Document ---
Author Organization [facility] Address [address] [place], [place] Phone [phone] Care Team Providers Care Database Security Administrator Name Role Phone Allie Galaviz CNP Care Team Information Television Audio Engineer Unavailable ANJANA PICHARDO M.D. Care Team Information [...] Ozempic (0.25 Or 0.5 MG/Dose)2mg/3ML Solution Pen-Inject Inject 0.5 MG Once Weekly as Tolerated 3units E11.9 Anjana Pichardo M.D. 07/19/2024 Zlsuzjkrtnzdzb31rb Tablets take 1 tablet by mouth twice a day 180tabs E11.9 Anjana Pichardo M.D. 07/19/2024 Levothyroxine Bcxqod67fnm Tablets take 1 tablet by mouth every day 90tabs E06.3 Anjana Pichardo M.D. 06/29/2023 Cfkalmnh960bj Tablets prn arm pain/stiff Weston Neal MD Zantac 09440uv Tablets 1 tab by mouth every day Unknown Cyclobenzaprine HCL5mg Tablets prn Weston Neal MD Nacn-Acetyl L-Cystine(Selenium, B12) Unknown Mupirocin2% Ointment Unknown Clonidine HCL0.1mg Tablets Ivis Alejandra, TECHNICAL REPORT WRITER Neosporin Plus Pain Relief Maximum Strength3.5-69997-26 Cream multiple times a day Unknown Tretinoin0.05% Cream 2-3x a week Unknown Hydroxyzine FMG47yr Tablets am dose as needed Unknown Hjyattbnum05ms Tablets Take 1 am & 3 in pm Unknown Vitamin B Complex-CCapsules Daily Un known Jbohxwn136im Capsules as needed Unknown Lubricant Eye Drops0.4-0.3% Solution Unknown MultivitaminTablets 1/ day(contains iron) Unknown Benedryl prn only @hs Unknown Liowmfrciz6te Tablets Take 1 Tablet By Mouth Once Or Twice Daily as Needed Unknown History Medications Freestyle Jessy 3 Plus/Sensor/Glucose Monitoring SystemMisc use to measure bs 4 or more times a day 6units E16.2 Anjana Pichardo M.D. 08/28/2024 - 09/03/2024 E11.9 Similac Alimentum Advance-IronLiquid take 65mg iron by mouth daily 30units Anjana Pichardo M.D. 06/29/2023 - 07/19/2024 Levothyroxine Virtxz99laj Tablets 1 take tablet once daily 90tabs E06.3 Anjana Pichardo M.D. 11/23/2021 - 04/19/2022 Artpoz-E60-294fq Tablets 1 tabs by mouth three times a day 90tabs D64.9 Anjana Pichardo M.D. 04/07/2020 - 03/15/2023 Levothyroxine Itofdm10wkv Tablets Take 1&1/2 Tabs(37.5mcg) For 4 Days Per Week & 2Tabs(50mcg) For 3 Days A Week 90tabs E06.3 Anjana Pichardo M.D. 04/07/2020 - 11/23/2021 Levothyroxine Kguqes01rwy Tablets 1 by mouth every day 90tabs E06.3 Anjana Pichardo M.D. 02/05/2020 - 04/07/2020 Cosentyx Sensoready Rsp510hq/ml Solution Auto-Inject Mariel Fink MD - 04/19/2022 Escitalopram Aalpadc09lx Tablets Ivis Alejandra NP - 08/23/2024 Feso4 Liq 220mg/5ml-intolera nt Unknown - 08/23/2024 Doxycycline Dtelpnxssfb317fh Capsules Allie Galaviz CNP - 08/23/2024 Paxlovid (300/100)20x 150 mg & 10 x 100mg TBPK Take 3 Tablets By Mouth Twice A Day For 5 Days Veronica Serra NP - 07/19/2024 Betamethasone Dipropionate Augmented0.05% Cream every other day or janice 3 or as needed Alex Blanco MD - 08/23/2024 Clindamycin Phosphate1% Lotion 2x day Tati Bowens NP - 08/23/2024 Vilazodone JGG54tp Tablets qd Ivis Alejandra NP - 08/23/2024 Levothyroxine Bhcpcr32qqz Tablets Take 1&1/2 Tabs(37.5mcg) By Mouth For 4 Days Per Week & 2Tabs(50mcg) For 3 Days A Week 90tabs E06.3 Anjana Pichardo M.D. - 06/29/2023 Aliquot/Tretinion/HC Powder apply to face Unknown - 03/15/2023 Hydroxychloroquine Xymilvp371ua Tablets Take 2 Tablets By Mouth Every Day Mariel Fink MD - 08/23/2024 Amphetamine-Dextroamphet qeeev44qv Tablets Take 1 Tablet By Mouth Twice A Day-stopped since not helpful Ivis Alejandra NP - 07/19/2024 Folic Tqjf6tf Tablets Take 1 Tablet By Mouth Every Day Unknown - 03/15/2023 Vitamin D-325mcg (1000 Ut) Capsules take 1 capsule by mouth every day in the morning for dietary supplement Unknown - 03/15/2023 Vitamin C500mg Capsules 1 by mouth every day Unknown - 06/16/2020 Xsvmgxr09xv Packet Unknown 0 - 02/05/2020 Fluzone Quadrivalent0.5ml Nurys To Be Administered By Pharmacist For Immunization Unknown - 06/16/2020 Hydroxyzine QZB52mm Tablets Take 1 Tablet By Mouth With Each Meal Unknown - 11/23/[address] Part Take 1 Capsule By Mouth Every Day Unknown - 09/18/2020 Trazodone WXV68ju Tablets Take 1 Tablet By Mouth Everyday AT Bedtime Unknown - 09/18/[address] Take 1 Capsule By Mouth Every Day Unknown - 07/19/2024 Prazosin HCL1mg Capsules Take 1 Capsule By Mouth Everyday AT Bedtime Unknown - 03/15/2023 Aqlqpzwszs3bo Tablets Take 1 Tablet By Mouth Every Day Unknown - 06/16/2020 Methotrexate2.5mg Tablets Take 6 Tablets By Mouth Every Week Unknown - 06/16/2020
--- OUTSIDE RECORDS SUMMARY | 2024-11-02 18:32 | XMS_ITS | Referral Summary ---
Author Organization [facility] Address [address] [place] [address] Care Team Providers Care Dry Cleaner Apprentice Name Role Phone GuillaumeAllie 4TH GRADE TEACHER Primary Care Provider [phone] Encounters Date Type Department Care Team Description 10/31/2024 1:15 PM EDT Office Visit [facility] [address] [phone] Engineering Inspector: Kinga Valenzuela MD Hidradenitis suppurativa (Primary Dx); High risk medication use; Skin pruritus 10/04/2024 myChart Message [facility] [address] [phone] Engineering Inspector: Dinora Babin LPN HS management tool 10/04/2024 myChart Message [facility] 4th [address] [place] [phone] Engineering Inspector: Kinga Valenzuela MD New Dx and new appt scheduled in 08/27/2024 Telephone [facility] [address] [phone] Engineering Inspector: Oly Juarez Telephone Intake, Staff PAC Patient Request Call Back; PAC Sick/Symptoms from Last 3 Months Allergies Active Allergy Reactions Criticality Noted Date Comments Bacitracin-Polymyxin B Abdominal Pain 3 Hydrocodone-Acetaminoph en Contact Dermatitis,Hives,Itc charu,Palpitations,Ra sh,Swelling High 01/17/2012 Other reaction(s): Skin Rashes, Hives Methotrexate Analogues Abdominal Pain,Acidosis,Agitat ion,Anxiety,Back pain,Blurry vision,Bruising,Ches t pain,Congestive Heart Failure,Contact Dermatitis,Dehydrati on,Delirium,Depressi on,Dermatitis,Diarrh ea,Diplopia,Drowsine ss,Dry mouth,Dry skin,Dysphagia,Eczem a,Edema,Exercise intolerance,Explosiv e Personality,Fatigue, Fecal Incontinence,Flatule nce,Flushing,Gastrit is,Headache,Heartbur n,Hives,Hot flashes,Indigestion, Insomnia,Itching,Gabrielle nt pain,Lethargy,Lighth eadedness,Malaise,Me dinh Disturbance,Migraine ,Mood Disturbance,Muscle cramps,Muscle Pain,Muscle Spasm,Palpitations,P anic Attacks,Photosensiti vity rash,Rash,Respirator y Distress,Restless Leg Syndrome,Sleep Disturbance,Speech Distrurbance,Swellin g,Unknown,Urinary Retention,Vasculitis ,Vertigo,Weakness High 05/21/2021 Peeling of skin, hives, arthralgias, myalgias, weakness, pleural effusion Sulfa (Sulfonamide Antibiotics) Hives 05/13/2016 Medications mupirocin (BACTROBAN) 2% ointmentIndicati ons:Skin erosion APPLY TOPICALLY TO AFFECTED AREA DAILY 22 g 3 01/31/20 24 Active ascorbic acid (VITAMIN C) 500 mg tablet Take 500 mg by mouth daily. 10/02/19 25 026 Active blood glucose diagnostic meter 09/03/19 25 Active vitamin B complex capsule Acti ve acetaminophen (TylenoL) 325 mg capsule Take by mouth. Active B-complex with vitamin C (VITAMIN B COMPLEX WITH C ORAL) Active baclofen (LIORESAL) 10 mg tablet 09/06/19 25 Active FreeStyle Lite Meter meter USE 1 TIME A DAY TO TEST BLOOD SUGAR 09/03/19 25 Active Hibiclens 4 % external liquid SMARTSIG:Topi juliane Daily PRN Active clonazePAM (KlonoPIN) 1 mg tablet Active Cymbalta 30 mg capsule Active Cymbalta 60 mg capsule 09/15/19 25 Active famotidine (PEPCID) 10 mg tablet Take by mouth. Active hydrOXYzine HCL (ATARAX) 10 mg tablet Take 10 mg by mouth. Active hydrOXYzine (ATARAX) 50 mg tablet Active levothyroxine (SYNTHROID, LEVOTHROID) 50 mcg tablet 02/07/20 20 Active loratadine 10 mg capsule Active loratadine (CLARITIN) 10 mg tablet SMARTSI Tablet(s) By Mouth Every Morning Active LORazepam (ATIVAN) 1 mg tablet SMARTSI Tablet(s) By Mouth Twice Daily PRN 10/17/19 25 Active meloxicam (MOBIC) 15 mg tablet 09/06/19 25 Active peg 400-propylene glycol (Lubricant Eye, PG-PEG 400,) 0.4-0.3 % drops eye drops Instill into affected eye(s). Active Ozempic 0.25 mg or 0.5 mg (2 mg/3 mL) Inject under the skin. 07/19/20 24 Active semaglutide (Ozempic) 0.25 mg or 0.5 mg(2 mg/1.5 mL) injection 08/25/19 25 Active silver sulfadiazine (SILVADENE) 1% cream Apply topically to the affected area daily. 09/26/19 25 Active spironolactone (ALDACTONE) 25 mg tablet Take by mouth. 06/30/20 24 Active topiramate (TOPAMAX) 25 mg tablet Active mupirocin 2 % ointment kit Active doxycycline monohydrate (MONODOX) 100 mg capsuleIndicatio ns:Hidradenitis suppurativa Take 1 capsule (100 mg total) by mouth 2 times a day for 7 days, THEN 1 capsule (100 mg total) once a day for 7 days. Start taking doxycyline for flare ups. 21 capsule 3 11/01/19 25 025 Active secukinumab (COSENTYX) 150 mg/mL subcutaneous pen injectorIndicati ons:Hidradenitis suppurativa Inject 300 mg (2 mL) under the skin once weekly at weeks 0, 1, 2, 3 and 4 then followed by 300 mg (2 mL) under the skin every 4 weeks thereafter. 10 mL 11/01/19 25 Active secukinumab (COSENTYX) 150 mg/mL subcutaneous pen injectorIndicati ons:Hidradenitis suppurativa Inject 2 mL (300 mg total) under the skin every 28 days. 2 mL 5 11/01/19 25 Active triamcinolone acetonide (KENALOG) 0.1% creamIndications :Skin pruritus Apply topically to the affected area 2 times a day as needed for irritation (itch). Avoid the face, armpits, groin, buttocks, breasts 80 g 1 11/01/19 25 Active lidocaine-priloc jose (EMLA) creamIndications :Hidradenitis suppurativa Apply a thick layer on areas that will be treated for laser hair removal, cover with a saran wrap 45-60 minutes before the procedure. 30 g 11/01/19 25 Active clindamycin (CLEOCIN T) 1 % lotionIndication s:Hidradenitis suppurativa Apply once daily to the pus bumps or erosions or pustules on the face or body 60 mL 5 11/01/19 25 Active clindamycin (CLEOCIN T) 1 % lotionIndication s:Skin erosion Apply to face every morning for acne. 60 mL 3 06/09/20 23 025 Discontinued tacrolimus (PROTOPIC) 0.1 % ointmentIndicati ons:Dermatitis Apply topically to the affected area 2 times a day. 60 g 3 06/09/20 23 025 Discontinued neomycin-polymyx in-pramoxine (NEOSPORIN) 3.5-10,000-10 mg-unit-mg/gram cream 025 Discontinued Active Problems No known active problems Immunizations Immunization Administration Dates Next Due Covid-19, Pfizer, mRNA, Dickinson valent, PF 30 mcg/0.3 mL dose (for ages 12 and older) 10/07/2020,09/08/2020 Social History Tobacco Use Types Packs/Day Years Used Date Smoking Tobacco: Never Assessed Comments Unknown Sex and Gender Information Value Date Recorded Sex Assigned at Female 06/09/2023 12:33 AM EST Legal Sex Female 10:44 AM EDT Gender Identity Female 06/09/2023 12:33 AM EST Sexual Orientation Straight 06/09/2023 12 :33 AM EST Last Filed Vital Signs Vital Sign Reading Time Taken Comments Blood Pressure - - Pulse - - Temperature - - Respiratory Rate - - Oxygen Saturation - - Inhaled Oxygen Concentration - - Weight 95.5 kg (210 lb 9.6 oz) 10/31/2024 1:09 P M EDT Height - - Body Mass Index - - Plan of Treatment Upcoming Encounters Date Type Department Care Team (Late st Contact Info) Description 02/27/2025 11:00 AM EDT Office Visit [facility] [address]nd [address] [place] [phone] Engineering Inspector: Kinga Valenzuela MD [address] [place] [phone] 02/27/2025 11:15 AM EDT Procedure visit [facility] [address]nd [address] [place] [phone] Engineering Inspector: Kinga Valenzuela MD [address] [place] [phone] Procedures * Due to [place] [employer] law, this organization might not be sharing negative HIV tests. Procedure Name Priority Date/Time Associated Diagnosis Comments HEPATITIS C ANTIBODY W/REFLEX TO HCV RNA, QUANTITATIVE PCR Routine 10/31/2024 2:50 PM EDT High risk medication use HEPATITIS B SURFACE ANTIBODY Routine 10/31/2024 2:50 PM EDT High risk medication use HEPATITIS B CORE ANTIBODY, TOTAL Routine 10/31/2024 2:50 PM EDT High risk medication use from Last 3 Months Results * Due to [place] [employer] law, this organization might not be sharing negative HIV tests. * Hepatitis C Antibody w/Reflex to HCV RNA, Quantitative PCR (10/31/2024 2:50 PM EDT) Hepatitis C Antibody NON-REACT LOBO NON-REACT LOBO 10/31/2024 11:43 PM EDT [facility] Comment: HCV antibody was non-reactive. There is no laboratory evidence of HCV infection. In most cases, no further action is required. However, if recent HCV exposure is suspected, a test for HCV RNA (test code 66857) is suggested. For additional information please refer to http://[employer].Proxly/faq/UHY88e6 (This link is being provided for informational/ educational purposes only.) Blood Structure of peripheral vein / Unknown Venipuncture / Unknown 10/31/2024 2:50 PM EDT 10/31/2024 2:50 PM EDT Narrative [facility] - 10/31/2024 11:43 PM EDT [facility] Received Date: Kinga Crocker MD LAB BLOOD ORDERABLES Final R esult [address]rd [facility], [place] [address], [employer] [address], [place] [address], * Hepatitis B Core Antibody, Total (10/31/2024 2:50 PM EDT) Hepatitis B Core Ab Total NON-REACT LOBO NON-REACT LOBO 11/01/2024 12:55 AM EDT [facility] Comment: For additional information, please refer to http://M[employer].Proxly/faq/JTS337 (This link is being provided for informational/ educational purposes only.) Blood Structure of peripheral vein / Unknown Venipuncture / Unknown 10/31/2024 2:50 PM EDT 10/31/2024 2:50 PM EDT Narrative [place] [facility] - 11/01/2024 12:55 AM EDT [facility] Received Date: Kinga Crocker MD LAB BLOOD ORDERABLES Final R esult [facility] [address], [place] [address], [place] [phone] [employer] [facility] [address], [place] [address], * Hepatitis B Surface Antibody (10/31/2024 2:50 PM EDT) Hepatitis B Surface Ab Immunity, Qn 168 > OR = 10 mIU/mL 11/01/2024 12:55 AM EDT [employer] Comment: PATIENT HAS IMMUNITY TO HEPATITIS B VIRUS. For additional information, please refer to http://education.Proxly/faq/PYF955 (This link is being provided for informational/ educational purposes only). Blood Structure of peripheral vein / Unknown Venipuncture / Unknown 10/31/2024 2:50 PM EDT 10/31/2024 2:50 PM EDT Narrative [facility] - 11/01/2024 12:55 AM EDT [facility] Received Date: Kinga Crocker MD LAB BLOOD ORDERABLES Final R esult [facility]RE[facility]SE[facility] [address], [place] [address], [place] [phone] [employer] [facility] [address], [place] [address], from Last 3 Months Insurance MEDICARE Care Teams Dry Cleaner Apprentice Relationship Specialty Start Date End Date Allie Galaviz NP [address] [place] [phone] PCP - General Family Medicine 08/27/24
--- OUTSIDE RECORDS SUMMARY | 2024-11-02 18:32 | XMS_ITS | Clinical Summary ---
Author Organization [facility] Address [address] [place] [address] Care Team Providers Care Health Policy Nurse Name Role Phone Allie Galaviz YAM CURER Primary Care Provider [phone] Allergies Active Allergy Reactions Criticality Noted Date [...] Discontinued Active Problems No known active problems Encounters Date Type Department Care Team Description 10/31/2024 1:15 PM EDT Office Visit [facility] [address] [place] [phone] [employer] Architect: Kinga Valenzuela MD Hidradenitis suppurativa (Primary Dx); High risk medication use; Skin pruritus 10/04/2024 myChart Message [facility] [address] [place] [phone] [employer] Architect: Dinora Babin LPN HS management tool 10/04/2024 myChart Message [facility] [address] [place] [phone] [employer] Architect: Kinga Valenzuela MD New Dx and new appt scheduled in 08/27/2024 Telephone [facility] [address] [place] [phone] [employer] Architect: Oly Juarez Telephone Intake, Staff PAC Patient Request Call Back; PAC Sick/Symptoms from Last 3 Months Immunizations Immunization Administration Dates Next Due Covid-19, Pfizer, mRNA, Brewster valent, PF 30 mcg/0.3 mL dose (for [...] Description 02/27/2025 11:00 AM EDT Office Visit [facility] 2nd Floor [address] [place] [address] [employer] Architect: Kinga Valenzuela MD [address] [place] [phone] 02/27/2025 11:15 AM EDT Procedure visit [facility] 2nd Floor [address] [place] [address] [employer] Architect: Kinga Valenzuela MD [address] [place] [phone] Health Maintenance Due Date Last Done Comments Cervical Cancer Screening 1977 Cologuard 1977 FOBT / Fit Test 1977 HIV Screening 1977 HPV and Pap Smear 1977 Pap Smear 1977 Sigmoidoscopy 1977 Medicare AWV 1978 DTaP,Tdap,and Td Vaccines (1 - Tdap) 01/23/2001 01/22/2001 COVID-19 Vaccine (2023-2 5 season) 2024 05/18/2022, 09/06/2021, 04/14/2021, Additional history exists Alcohol/Substance Use Screening 07/31/2024 Depression Screening and Follow-Up 07/31/2024 Social Drivers of Health [place] ual Screening 07/31/2024 Mammogram 01/16/2025 01/16/2023 Colon Cancer Screening 10/02/2029 Colonoscopy 10/02/2029 10/03/2019 RSV Vaccine (60+ years old a nd patients) (1 - 1-dose 75+ series) 01/21/2052 Hepatitis B Vaccines Completed 08/23/2005, 07/29/2004, 10/01/2001 Pneumococcal Vaccine: Pediat isaiah (0-5 Years) and At-Risk Patients (6-50 Years) Completed 09/06/2021, 04/29/2020 Influenza Vaccine Completed 02/05/2024, , 05/18/2022, Additional history exists Hepatitis C Screening Completed 10/31/2024 Procedures * Due to [place] [employer] law, this organization might not be sharing [...] Last 3 Months Results * Due to [place] [employer] law, this organization might not be sharing negative HIV tests. * Hepatitis C Antibody w/Reflex to HCV RNA, Quantitative PCR (10/31/2024 2:50 PM EDT) Hepatitis C Antibody NON-REACT LOBO NON-REACT LOBO 10/31/2024 11:43 PM EDT [facility] Comment: HCV antibody was non-reactive. There is no laboratory evidence of HCV infection. In most cases, no further action is required. However, if recent HCV exposure is suspected, a test for HCV RNA (test code 96940) is suggested. For additional information please refer to http://education.Seven Technologies/faq/ZDI24h2 (This link is being provided for informational/ educational purposes only.) Blood Structure of peripheral vein / Unknown Venipuncture / Unknown 10/31/2024 2:50 PM EDT 10/31/2024 2:50 PM EDT Narrative [facility] - 10/31/2024 11:43 PM EDT [facility] Received Date: us Kinga Crocker MD LAB BLOOD ORDERABLES Final R esult Performing Organization Address City/[facility]/ZIP Co de Phone Number [facility]REA [facility] [address], [place] [address], [place] [phone] [facility] [address], [place] [address], [place] [phone] * Hepatitis B Core Antibody, Total (10/31/2024 2:50 PM EDT) Pathologist [facility] Hepatitis B Core Ab Total NON-REACT LOBO NON-REACT LOBO 11/01/2024 12:55 AM EDT [facility] Comment: For additional information, please refer to http://education.[employer] Technologies/faq/QAO805 (This link is being provided for informational/ educational purposes only.) Blood Structure of peripheral vein / Unknown Venipuncture / Unknown 10/31/2024 2:50 PM EDT 10/31/2024 2:50 PM EDT Narrative [facility] - 11/01/2024 12:55 AM EDT [facility] Received Date:[id number] us Kinga Crocker MD LAB BLOOD ORDERABLES Final R esult Performing Organization Address City/[facility]/ZIP Co de Phone Number ANDREA ROUSSEAU 200 [facility] 3rd [facility], [place] [address], [place] [phone] [employer] [facility] [address], [place] [address], [place] [phone] * Hepatitis B Surface Antibody (10/31/2024 2:50 PM EDT) Pathologist [facility] Hepatitis B Surface Ab Immunity, Qn 168 > OR = 10 mIU/mL 11/01/2024 12:55 AM EDT [facility] Comment: PATIENT HAS IMMUNITY TO HEPATITIS B VIRUS. For additional information, please refer to http://education.[employer].DadaJOE.com/faq/TDQ673 (This link is being provided for informational/ educational purposes only). Blood Structure of peripheral vein / Unknown Venipuncture / Unknown 10/31/2024 2:50 PM EDT 10/31/2024 2:50 PM EDT Narrative [facility] - 11/01/2024 12:55 AM EDT [facility] Received Date:[id number] Kinga Crocker MD LAB BLOOD ORDERABLES Final R esult [facility] [place] 200 [facility] 3rd Floor, [place] [address], [employer] [facility] 200 [facility] 3rd Floor, [place] [address], from Last 3 Months Insurance MEDICARE Care Teams Health Policy Nurse Relationship Specialty Start Date End Date Allie Galaviz NP [address] [place] [phone] PCP - General Family Medicine 08/27/24
--- OUTSIDE RECORDS SUMMARY | 2024-11-02 18:34 | XMS_ITS | Encounter Summary ---
Author Organization [facility] Address [address] [place] [address] Care Team Providers Care Chinchilla Machine Operator Name Role Phone GuillaumeAllie GREY WASHER Primary Care Provider [phone] Encounter Details Date Type Department Care Team (Late st Contact Info) Description 10/04/2024 myChart Message [facility] [address]th [address] [place] [address], Fourth [place] [phone] Search Planner: Dinora Babin LPN HS management tool Social History Tobacco Use Types Packs/Day Years [...] * Telephone Encounter - Steffany Maloney - 10/10/2024 9:05 AM EDT Lvm for patient w/ appt details * Telephone Encounter - Tata Cade - 10/08/2024 9:59 AM EDT Sorry I saw this message after sending my last message documented in this encounter Plan of Treatment Upcoming Encounters Date Type Department Care Team (Late st Contact Info) Description 02/27/2025 11:00 AM EDT Office Visit [facility] [address]nd [address] [place] [phone] Search Planner: Kinga Valenzuela MD [address] [place] [phone] 02/27/2025 11:15 AM EDT Procedure visit [facility] 2nd [address] [place] [address] Search Planner: Kinga Valenzuela MD [address] [place] [phone] documented as of this encounter Visit Diagnoses Not on filedocumented in this encounter Care Teams Chinchilla Machine Operator Relationship Specialty Start Date End Date Allie Galaviz NP [address] [place] [phone] PCP - General Family Medicine 08/27/24 documented as of this encounter
--- OUTSIDE RECORDS SUMMARY | 2024-11-02 18:34 | XMS_ITS | Encounter Summary ---
Author Organization [facility] Address [address] [place] [address] Care Team Providers Care Solid Waste Analyst Name Role Phone Allie Galaviz ELECTRIC MOTOR FITTER Primary Care Provider [phone] Reason for Visit * Reason Comments Skin Problem * Dermatology (Routine) - Pending Review Specialty Diagnoses / Procedures Referred By Evangelina dias Referred To Contact Dermatology Diagnoses Local infection of the skin and subcutaneous tissue, unspecified [facility] [address] [address] Phone: tel: fax: Referral ID Status Reason Start Date Expiration Date V isits Requested Visits Authorized [id number] Pending Review 05/29/2023 11/27/2024 6 6 Encounter Details Date Type Department Care Team (Latest Contact Info) Description 10/31/2024 1:15 PM EDT Office Visit [facility]ology Clinic [address] [address] Ice Resurfacing Machine Operators: Kinga Valenzuela MD [address] [place] [phone] Hidradenitis suppurativa (Primary Dx); High risk medication use; Skin pruritus Social History Tobacco Use Types Packs/Day Years Used Date Smoking Tobacco: Never Assessed Comments Unknown Sex and Gender Information Value Date Recorded Sex Assigned at Female 06/09/2023 12:33 AM EST Legal Sex Female 10:44 AM EDT Gender Identity Female 06/09/2023 12:33 AM EST Sexual Orientation Straight 06/09/2023 12 :33 AM EST documented as of this encounter Last Filed Vital Signs Vital Sign Reading Time Taken Comments Blood Pressure - - Pulse - - Temperature - - Respiratory Rate - - Oxygen Saturation - - Inhaled Oxygen Concentration - - Weight 95.5 kg (210 lb 9.6 oz) 10/31/2024 1:09 P M EDT Height - - Body Mass Index - - documented in this encounter Patient Instructions * Patient Instructions* Jose Cunningham MD - 10/31/2024 2:34 PM EDT Images from the original note were not included. Dermablend is a brand of make up that is used to cover any color changes, pigment changes and birthmarks. It is made for a wide range of skin types. It can be bought online, for example: https://www.Lit Building Directory/c/dermablend Tinted Sunscreens (Micronized and Non-micronized Sunscreens Containing Iron Oxide) La Usama-Posay Anthelios Tinted Ultra- Light Tinted Mineral 50 $34 Non- comedogenic; water resistance lasts 80 minutes Cotz Face Natural Skin Tone Titanium dioxide 8%; Zinc Oxide 3.8% Tizo 3 Tinted Face Mineral Sunscreen Titanium dioxide 8%; Zinc Oxide 3.8% Coola Mineral Face Matte Tint Moisturizer Titanium dioxide 3.2%; Zinc Oxide 1.8% Skinceuticals Physical Fusion UV Defense Titanium dioxide 6%; Zinc Oxide 5% Neostrata Titanium dioxide 7%; Zinc Oxide 6% SkinMedica Essential Defense Mineral Shield Titanium dioxide 5%; Zinc Oxide 6% MDSolarSciences Mineral Cr??me Titanium dioxide 2%; Zinc Oxide 17% EltaMD UV Physical Tinted Facial Suncreen Titanium dioxide 7%; Zinc Oxide 9% Practical Tips Physical sunscreens include titanium dioxide and zinc oxide. These sunscreens provide the broadest coverage of sun protection, but leave a whiter cast on skin. Micronized titanium dioxide and zinc oxide formulations are less opaque, making them more cosmetically appealing, however they are less effective at blocking longer wavelengths such as UVA and visible light. Iron oxide can be added to zinc and titanium sunscreens to decrease the appearance of the ???white cast?? on the skin, and can increase the range of coverage against UVA and visible light. Sunscreens with iron oxide can help prevent recurrence and reduce pigmentation in patients with melasma. How to Apply EMLA Cream?? (lidocaine 2.5% and prilocaine 2.5%) or Lidocaine 4% or 5% Cream Two hours prior to procedure: Take acetaminophen (Tylenol) 15 mg/kg or ibuprofen (Motrin) 10mg/kg 1.Two hours prior to the procedure, squeeze out a thick dollop of EMLA or Lidocaine Cream and applydirectly onto the skin in the area to have a biopsy or laser treatment. DO NOT rub cream into the skin. Apply a thick amount like thick cream cheese on a bagel or thick frosting on a cake. Your provider will tell you how much can be used safely. 2.Cover with an airtight plastic dressing (e.g., Tegaderm). Seal edges only, ensuring that there isno leakage. Be sure to allow EMLA or Lidocaine Cream to remain in a THICK LAYER. DO NOT apply a bandage with gauze as this will take the medication off of the skin. Note: If you don't have Tegaderm, it is okay to use plastic wrap like Saran or Press and Seal wrap in place of Tegaderm. Secure with paper tape if using plastic wrap. 3.With Tegaderm, remove the thin paper frame and seal the edges of the dressing onto the skin. Record the time when applied. Make certain the cream remains undisturbed until your provider removes it. Note: Best if applied at least 2 hours prior to the start of the procedure but may be left in placefor up to 4 hours with continued effectiveness. Please reapply if cream has been absorbed into skin, then cover again. PRECAUTIONS: Care should be taken to ensure EMLA or lidocaine Cream does not get into the eyes We typically do not use EMLA cream but rather lidocaine cream under 1 year of age. When applied to young children, care should be taken to ensure EMLA or lidocaine Cream is not ingested. As with all medications, keep these creams out of the reach of children. documented in this encounter Progress Notes * Jose Cunningham MD - 10/31/2024 1:11 PM EDT Images from the original note were not included. DERMATOLOGY NOTE CHIEF COMPLAINT: Hidradenitis suppurativa HPI: Inga Keita is a 49 y.o. old female patient who presents as a referral from Allie Galaviz NP [facility] Hidradenitis Suppurativa (HS) Center for an initial evaluation of (HS). Last seen by Dr. Crocker in regular dermatology clinic on 06/09/23 for a scattered erosions and hypopigmented scarring on the face that was treated with benzoyl peroxide wash, clindamycin 1% lotion, mupirocin, and tacrolimus as folliculitis with a plan to obtain a biopsy for histopathological evaluation but she did not show up. She is accompanied by her mother today who helps with providing history. Since her last visit she has been diagnosed with hidradenitis suppurativa. She went to a different hip hop dance instructor who performed a biopsy showing actinic keratosis but she is unsure and we do not have access to the biopsy result because it was done at the outside practice ([facility]). Doxycyline seems to help close up some of the spots on the face. She has areas that have not healedup. She has not noticed if sun exposure makes much of a difference. She finished a 21 day course ofdoxycyline recently. Her primary care provider has been treating the erosions with oral doxycyline. The erosions have spread to the chest, breasts, sides, stomach, groin that feel like they are tunneling Her health care assistant has diagnosed her with hidradenitis suppurativa. She has type 2 diabetes (on Ozempic), jewell. She sees a manager training at [facility] manager training Dr. [place]on [place], [place] [phone], and there is a question of ankylosing spondylitis and was started on Cosentyx before the onset of her skin symptoms. She has a positive HLA B27. She was on Cosentyx for about 2 months and noticed the stiffness of her hands getting better. She has a painful cyst on right shoulder that recently ruptured and drained and release a putrid smelling drainage. Has not been able to use the rightarm for about a year because of the painful ?cyst. She had a similar episode of swelling on her back that felt like a water bed . All her symptoms started around 2020 as a red spot where she plucked her left eyebrow that did not heal up. She saw an eye doctor and three weeks later she had MRSA cellulitis required antibiotics. She has completed the MRSA decolonization protocol (mupirocin to the nose and Hibiclens to the body). She also has bumps on her head that are very tender, some are dry and scaly, she has areas of hair missing on left anglican Last week had an episode of urinary incontinence No family history of of hidradenitis suppurativa. Paternal uncle with ankylosing spondylitis. No history of psoriasis. Her sister has MS Pt reports that her symptoms are overall: severe. Patient endorses a severe amount of drainage and a 24 hour max pain level of 7/10. Patient estimates that number of flares/month is unclear since they seem to constantly get new spots She is traveling to [place] and [facility] in two weeks. Associated conditions: -Inflammatory bowel disease? No diagnosis of IBD, had diarrhea and bloating while on Cosentyx whichresolved when she discontinued it. Had EGD and colonoscopy when she was 42 which just showed gastritis. -polycystic ovarian syndrome (PCOS)? Yes, on spironolactone 25 mg twice daily, which has helped thefluid retention on her face and body -diabetes mellitus (DM) Yes, Type (II) on Ozempic, insulin dependent (yes/no), -thyroid disease? Yes -inflammatory arthritis? Yes -obesity? yes -acne? Yes Has taken isotretinoin in past? No -metabolic syndrome? Yes -pyoderma gangrenosum? N/A -anemia? Yes, cannot take iron, planning to see hematology Takes zinc supplementation? Yes Social history: -former smoker, quit 5 years ago (1 pack a day for 30 days) -opioid use disorder? No Sees a bridge painter? No -depression/anxiety? Yes Past therapies: doxycyline, Hibiclens Current therapies: Current Outpatient Medications Medication Sig Dispense Refill acetaminophen (TylenoL) 325 mg capsule Take by mouth. ascorbic acid (VITAMIN C) 500 mg tablet Take 500 mg by mouth daily. B-complex with vitamin C (VITAMIN B COMPLEX WITH C ORAL) baclofen (LIORESAL) 10 mg tablet blood glucose diagnostic meter clindamycin (CLEOCIN T) 1 % lotion Apply once daily to the pus bumps or erosions or pustules on theface or body 60 mL 5 clonazePAM (KlonoPIN) 1 mg tablet Cymbalta 30 mg capsule Cymbalta 60 mg capsule doxycycline monohydrate (MONODOX) 100 mg capsule Take 1 capsule (100 mg total) by mouth 2 times a day for 7 days, THEN 1 capsule (100 mg total) once a day for 7 days. Start taking doxycyline for flare ups. 21 capsule 3 famotidine (PEPCID) 10 mg tablet Take by mouth. FreeStyle Lite Meter meter USE 1 TIME A DAY TO TEST BLOOD SUGAR Hibiclens 4 % external liquid SMARTSIG:Topical Daily PRN hydrOXYzine (ATARAX) 50 mg tablet hydrOXYzine HCL (ATARAX) 10 mg tablet Take 10 mg by mouth. levothyroxine (SYNTHROID, LEVOTHROID) 50 mcg tablet lidocaine-prilocaine (EMLA) cream Apply a thick layer on areas that will be treated for laser hair removal, cover with a saran wrap 45-60 minutes before the procedure. 30 g 0 loratadine (CLARITIN) 10 mg tablet SMARTSI Tablet(s) By Mouth Every Morning loratadine 10 mg capsule LORazepam (ATIVAN) 1 mg tablet SMARTSI Tablet(s) By Mouth Twice Daily PRN meloxicam (MOBIC) 15 mg tablet mupirocin (BACTROBAN) 2% ointment APPLY TOPICALLY TO AFFECTED AREA DAILY 22 g 3 mupirocin 2 % ointment kit Ozempic 0.25 mg or 0.5 mg (2 mg/3 mL) Inject under the skin. peg 400-propylene glycol (Lubricant Eye, PG-PEG 400,) 0.4-0.3 % drops eye drops Instill into affected eye(s). secukinumab (COSENTYX) 150 mg/mL subcutaneous pen injector Inject 300 mg (2 mL) under the skin onceweekly at weeks 0, 1, 2, 3 and 4 then followed by 300 mg (2 mL) under the skin every 4 weeks thereafter. 10 mL 0 secukinumab (COSENTYX) 150 mg/mL subcutaneous pen injector Inject 2 mL (300 mg total) under the skin every 28 days. 2 mL 5 semaglutide (Ozempic) 0.25 mg or 0.5 mg(2 mg/1.5 mL) injection silver sulfadiazine (SILVADENE) 1% cream Apply topically to the affected area daily. spironolactone (ALDACTONE) 25 mg tablet Take by mouth. topiramate (TOPAMAX) 25 mg tablet triamcinolone acetonide (KENALOG) 0.1% cream Apply topically to the affected area 2 times a day as needed for irritation (itch). Avoid the face, armpits, groin, buttocks, breasts 80 g 1 vitamin B complex capsule No current facility-administered medications for this visit. Allergies Allergen Reactions Hydrocodone-Acetaminophen Contact Dermatitis, Hives, Itching, Palpitations, Rash and Swelling Other reaction(s): Skin Rashes, Hives Methotrexate Analogues Abdominal Pain, Acidosis, Agitation, Anxiety, Back pain, Blurry vision, Bruising, Chest pain, Congestive Heart Failure, Contact Dermatitis, Dehydration, Delirium, Depression, Dermatitis, Diarrhea, Diplopia, Drowsiness, Dry mouth, Dry skin, Dysphagia, Eczema, Edema, Exercise intolerance, Explosive Personality, Fatigue, Fecal Incontinence, Flatulence, Flushing, Gastritis, Headache, Heartburn, Hives, Hot flashes, Indigestion, Insomnia, Itching, Joint pain, Lethargy, Lightheadedness, Malaise, Memory Disturbance, Migraine, Mood Disturbance, Muscle cramps, Muscle Pain, MuscleSpasm, Palpitations, Panic Attacks, Photosensitivity rash, Rash, Respiratory Distress, Restless LegSyndrome, Sleep Disturbance, Speech Distrurbance, Swelling, Unknown, Urinary Retention, Vasculitis,Vertigo and Weakness Peeling of skin, hives, arthralgias, myalgias, weakness, pleural effusion Bacitracin-Polymyxin B Abdominal Pain Sulfa (Sulfonamide Antibiotics) Hives PHYSICAL EXAM: Wt 95.5 kg (210 lb 9.6 oz) Constitutional exam: Well-developed, no acute distress Oriented x 3 Mood and affect: pleasant A focused skin exam with inspection and/or palpation of the face, neck, trunk, extremities, and groin area revealed no significant findings except: Few shallow erosions on the face, arms, chest, abdomen, buttock, scalp, and neck with occasional serous or hemorrhagic crusts No abscess formation, double comedones, or sinus tracks Number of inflammatory (red or tender) nodules and abscesses today: 0 Moreno stage I HS PGA score: 1 IMPRESSION & PLAN: Hidradenitis suppurativa, Moreno stage I - discussed diagnosis and chronic nature of hidradenitis suppurativa, its association with comorbidities, such as ankylosing spondylitis, IBD, metabolic syndrome, diabetes, PCOS. Discussed exacerbating factors, such as smoking, friction, weight gain and reviewed treatment options, including topical antibiotics and benzoyl peroxide, oral antibiotics, biologics, and hormonal therapies Hidradenitis suppurativa Treatment options: Topicals: Clindamycin lotion to affected areas daily Mupirocin to continue using on the open erosions Benzoyl peroxide: will hold off since it may be too drying Triamcinolone cream to help with itchy skin Antibiotics: doxycyline for flare ups, prescription sent today, recommended carrying a prescriptionwith her as she travels Hormonal agents: Spironolactone: continue 25 mg twice daily since it is helping her Biologics: given her HLA B27 positive status, concurrent ankylosing spondylitis and now with a new diagnosis of hidradenitis suppurativa, she will likely benefit from restarting Cosentyx. We made a shared decision to restart Cosentyx and so a new prescription was placed today. Encouraged her to discuss it with her manager training as well Laser hair removal: she will benefit from laser hair removal given her hidradenitis suppurativa andshe is interested in this option, recommended avoiding shaving, plucking, and shaving. Prescriptionfor EMLA was sent today. Instructions for EMLA was also provided Other medications Continue on Klonopin, cymbalta and topamax that is managed by her mental health provider/primary care provider Will hold off of starting gabapentin for now, recommended discussing with her primary care provideror mental health provider about Lyrica to help with her pruritus Recommended tinted moisturizer for the face, dermablend to help cover the discoloration She has some tretinoin at home, explained that it may be irritating to her face -reviewed flare plan including OTC ichthamol BID at first sign of flare, OTC lidocaine gel prn pain, OTC NSAIDs/tylenol q6h prn staggered, warm compresses. For severe flare: pt to call or message to arrange in office IL-TAC or oral antibiotic. Explained that scars on her face and body will not go away but may become more even and operations chief over time HS Handout provided to patient today -START triamcinolone acetonide (KENALOG) 0.1% cream; Apply topically to the affected area 2 times aday as needed for irritation (itch). Avoid the face, armpits, groin, buttocks, breasts Dispense: 80g; Refill: 1 -CONTINUE doxycycline monohydrate (MONODOX) 100 mg capsule; Take 1 capsule (100 mg total) by mouth 2 times a day for 7 days, THEN 1 capsule (100 mg total) once a day for 7 days. Start taking doxycyline for flare ups. Dispense: 21 capsule; Refill: 3 -RESTART secukinumab (COSENTYX) 150 mg/mL subcutaneous pen injector; Inject 300 mg (2 mL) under theskin once weekly at weeks 0, 1, 2, 3 and 4 then followed by 300 mg (2 mL) under the skin every 4 weeks thereafter. Dispense: 10 mL; Refill: 0 -RESTART secukinumab (COSENTYX) 150 mg/mL subcutaneous pen injector; Inject 2 mL (300 mg total) under the skin every 28 days. Dispense: 2 mL; Refill: 5 -START lidocaine-prilocaine (EMLA) cream; Apply a thick layer on areas that will be treated for laser hair removal, cover with a saran wrap 45-60 minutes before the procedure. Dispense: 30 g; Refill:0 -RESTART clindamycin (CLEOCIN T) 1 % lotion; Apply once daily to the pus bumps or erosions or pustules on the face or body Dispense: 60 mL; Refill: 5 2. High risk medication use (to restart Cosentyx) - QuantiFERON-TB Gold Plus, 1 Tube; Future - Hepatitis C Antibody w/Reflex to HCV RNA, Quantitative PCR; Future - Hepatitis B Surface Antibody; Future - Hepatitis B Core Antibody, Total; Future Return: Return in about 3 months (around 01/30/2025) for HS follow up. Case and plan discussed with the attending hip hop dance instructor Dr. [place] Derm[facility] resident documented in this encounter Plan of Treatment Upcoming Encounters Date Type Department Care Team (Late st Contact Info) Description 02/27/2025 11:00 AM EDT Office Visit [facility] Dermatology Clinic [address]nd [address] [place] [id number] Ice Resurfacing Machine Operators: Kinga Valenzuela MD [address] [place] [phone] 02/27/2025 11:15 AM EDT Procedure visit [facility] Dermatology Clinic [address]nd [address] [place] [address], [place] [address] Ice Resurfacing Machine Operators: Kinga Valenzuela MD [address] [place] [address] Pending Results Name Type Priority Associated Diagnoses Date /Time QuantiFERON-TB Gold Plus, 1 Tube Lab Routine High risk medication use 10/31/2024 2:50 PM EDT Scheduled Orders Name Type Priority Associated Diagnoses Orde r Schedule QuantiFERON-TB Gold Plus, 1 Tube Lab Routine High risk medication use Expected: 10/31/2024, Expires: 04/29/2025 documented as of this encounter Results * Due to [place] state law, this organization might not be sharing negative HIV tests. * Hepatitis B Core Antibody, Total (10/31/2024 2:50 PM EDT) Hepatitis B Core Ab Total NON-REACT LOBO NON-REACT LOBO 11/01/2024 12:55 AM EDT [facility] Comment: For additional information, please refer to http://FreedomPop.Material Wrld/faq/UGP411 (This link is being provided for informational/ educational purposes only.) Blood Structure of peripheral vein / Unknown Venipuncture / Unknown 10/31/2024 2:50 PM EDT 10/31/2024 2:50 PM EDT Narrative [facility] - 11/01/2024 12:55 AM EDT [facility] Received Date: us Kinga Crocker MD LAB BLOOD ORDERABLES Final R esult Performing Organization Address City/[facility]/ZIP Co de Phone Number [facility] [address], [place] [address], [place] [phone], [place] [address], [place] [phone] * Hepatitis B Surface Antibody (10/31/2024 2:50 PM EDT) Hepatitis B Surface Ab Immunity, Qn 168 > OR = 10 mIU/mL 11/01/2024 12:55 AM EDT [facility] Comment: PATIENT HAS IMMUNITY TO HEPATITIS B VIRUS. For additional information, please refer to http://FreedomPop.Material Wrld/faq/NOF645 (This link is being provided for informational/ educational purposes only). Blood Structure of peripheral vein / Unknown Venipuncture / Unknown 10/31/2024 2:50 PM EDT 10/31/2024 2:50 PM EDT Narrative [facility] - 11/01/2024 12:55 AM EDT [facility] Received Date:[id number] us Kinga Crocker MD LAB BLOOD ORDERABLES Final R esult [facility] [address], [place] [address], [place] [phone] [facility] [address] [place] [address], [place] [phone] * Hepatitis C Antibody w/Reflex to HCV RNA, Quantitative PCR (10/31/2024 2:50 PM EDT) Hepatitis C Antibody NON-REACT LOBO NON-REACT LOBO 10/31/2024 11:43 PM EDT [facility] Comment: HCV antibody was non-reactive. There is no laboratory evidence of HCV infection. In most cases, no further action is required. However, if recent HCV exposure is suspected, a test for HCV RNA (test code 85860) is suggested. For additional information please refer to http://education.Material Wrld/faq/SON09b4 (This link is being provided for informational/ educational purposes only.) Blood Structure of peripheral vein / Unknown Venipuncture / Unknown 10/31/2024 2:50 PM EDT 10/31/2024 2:50 PM EDT Narrative [facility] - 10/31/2024 11:43 PM EDT [facility] Received Date:[id number] us Kinga Crocker MD LAB BLOOD ORDERABLES Final R esult [facility] [address] [facility] [address] [facility], [place] [address], [place] [phone] [facility] [address], [place] [address], [place] [phone] documented in this encounter Visit Diagnoses Diagnosis Hidradenitis suppurativa- Primary Hidradenitis High risk medication use Skin pruritus documented in this encounter Care Teams Solid Waste Analyst Relationship Specialty Start Date End Date Allie Galaviz NP [address] [place] [id number] PCP - General Family Medicine 08/27/24 documented as of this encounter
--- OUTSIDE RECORDS SUMMARY | 2024-11-02 18:34 | XMS_ITS | Encounter Summary ---
Author Organization [facility] Address [address] [place] [address] Care Team Providers Care Dryer And Washer Mechanic Name Role Phone Allie Galaviz WORLD LANGUAGE TEACHER Primary Care Provider [phone] Encounter Details Date Type Department Care Team (Late st Contact Info) Description 10/04/2024 myChart Message [facility] Dermatology Clinic 4th Floor [address] [facility], [place] [id number] Carver Hand: Kinga Valenzuela MD [address] [place], [place] [phone] New Dx and new appt scheduled in October Social History Tobacco Use Types Packs/Day Years Used Date Smoking Tobacco: Never Assessed Comments Unknown Sex and Gender Information Value Date Recorded Sex Assigned at Female 06/09/2023 12:33 AM EST Legal Sex Female 10:44 AM EDT Gender Identity Female 06/09/2023 12:33 AM EST Sexual Orientation Straight 06/09/2023 12 :33 AM EST documented as of this encounter Miscellaneous Notes * Telephone Encounter - Dinora Mendoza LPN - 10/17/2024 4:06 PM EDT Appt set for 10/31/24 documented in this encounter Plan of Treatment Upcoming Encounters Date Type Department Care Team (Late st Contact Info) Description 02/27/2025 11:00 AM EDT Office Visit [facility] Dermatology Clinic 2nd Floor [address] [place] [phone] Carver Hand: Kinga Valenzuela MD [address] [place] [address] 02/27/2025 11:15 AM EDT Procedure visit [facility] Dermatology Clinic 2nd Floor [address] [place] [address] Carver Hand: Kinga Valenzuela MD [address] [place] [address] documented as of this encounter Visit Diagnoses Not on filedocumented in this encounter Care Teams Dryer And Washer Mechanic Relationship Specialty Start Date End Date Allie Galaviz NP [address] [place] [address] PCP - General Family Medicine 08/27/24 documented as of this encounter
== END 2024-11-02 18:20 | disposition home or self-care (01) ==
LOC: HO.MRI 18:19
PROVIDERS: Visit Provider Internal Medicine Rheumatology
DX: M54.9 Dorsalgia, unspecified (principal); M45.9 Ankylosing spondylitis of unspecified sites in spine; G89.29 Other chronic pain
CPT/HCPCS: 72195

== ENCOUNTER → 2024-11-02 18:35 | Outpatient (BNV) | payer MEDICARE, MEDICAID, SELFPAY | PROVIDERS: Visit Provider Radiology Diagnostic Radiology | DX: M45.9 Ankylosing spondylitis of unspecified sites in spine (principal) | CPT/HCPCS: 72195 ==

== ENCOUNTER 2025-02-06 09:05 | Outpatient (AMB) | payer MEDICARE, MEDICAID, SELFPAY ==
--- NOTE | 2025-02-06 09:06 | MHC.OFFVIS ---
Vital Signs 02/06/25 09:08 Height 5 ft 7 in Weight 203 lb 14.841 oz BMI 31.9 BP 160/100 H Blood Pressure Location Rt brachial Position Sitting Pulse 106 H Pulse Source Pulse Oximeter Pulse Oximetry (%) 96 Oxygen Delivery Method Room Air Intake Visit Reasons: Follow up with Dr Neal for Intake Note: Follow up appt for . Allergies acetaminophen (Vicodin) Allergy (Unknown, Verified 02/06/25 09:12) Hives hydrocodone (Vicodin) Allergy (Unknown, Verified 02/06/25 09:12) hives oxcarbazepine (Trileptal) Allergy (Unknown, Verified 02/06/25 09:12) Unknown polymyxin B (From Polytrim) Allergy (Verified 02/06/25 09:12) Unknown trimethoprim (From Polytrim) Allergy (Verified 02/06/25 09:12) Unknown Sulfacet-R Allergy (Unknown, Uncoded 09/12/24 10:38) unknown methtexrate Allergy (Uncoded 09/12/24 10:38) facial swelling trileptal Allergy (Uncoded 09/12/24 10:38) Unknown HPI HPI Follow up with Dr Neal for : Details: She is being followed by Dermatology and was recently diagnosed with HS. Dermatology wants to start Cosentyx. She was given doxycycline PRN inflammation. SHe feels better on doxycycline when she takes it. She has stiffness and muscle spasms in the back. She has difficulty getting up from seated position. She has pain in her hands and feet. She has swelling in her feet. She has HS lesions on her right shoulder. When they are draining she has limited range of motion of her right shoulder. [facility] Medical History Hidradenitis suppurativa Diabetes type 2 Endometrioma of ovary Precancerous lesion Ankylosing spondylitis Spondylolytic spondylolisthesis Zana's disease H/O degenerative disc disease Endometriosis Irritable bowel syndrome Asthma Family History Mother Hemochromatosis Gout Stented coronary artery Father Cancer Unknown Spondylitis Multiple sclerosis Brother Throat cancer Testicular cancer Social History Household Members: Children Household Members Other:: 1 age 21 Comment: 1-2 drinks a year Patient Tobacco Use Status: Former Tobacco user Physical Exam Vital Signs: Last Vital Signs Pulse 106 H 02/06/25 09:08 BP 160/100 H 02/06/25 09:08 Pulse Ox 96 02/06/25 09:08 Oxygen Delivery Method Room Air 02/06/25 09:08 BMI result Body Mass Index 31.9 Const Other: General: Comfortable CVS: RRR Respiratory: clear to auscultation bilaterally. Good respiratory effort Skin: No lesions seen MSK: Tender bilateral shoulders. Right shoulder abduction 45 degrees with good internal rotation but limited external rotation. Left shoulder range of motion is normal. She has tenderness of bilateral knees, suprapatellar region and infrapatellar region, MTPs. She has mild synovitis of bilateral knees and MTPs right worse than left. Assessment & Plan Assessment & Plan (1) Ankylosing spondylitis: Comment: Uncontrolled back pain is multifactorial due to myofascial strain, mild lumbar degenerative joint disease (small anterior vertebral body osteophyte L3-L4 and mild degenerative facet arthropathy L4-L5) and inflammatory back pain. She had mild elevation of inflammatory markers last visit with ESR 23 mm/hr and CRP 2.25 mg/dL 09/26/2024. She has developed peripheral arthritis involving her knees and feet with enthesitis on exam. I am in agreement with starting Cosentyx to help control inflammatory arthritis and hydradenitis suppurativa. I am requesting that Dermatology do the prior authorization as dosing regimen for HS is different than ankylosing spondylitis. Patient would be undertreated for HS if I did the PA for Cosentyx for indication ankylosing spondylitis. Patient will further discuss with Dermatology. Rheumatology history: She has non radiographic ankylosing spondylitis HLA B27 positivity, elevated inflammatory markers. Manifesting as chronic inflammatory back pain and history of peripheral arthritis affecting hands. ATC X-rays of left hand and bilateral feet, T-spine, L-spine (06/21/2023) and SI joint 08/03/2023 are normal. She could not tolerate methotrexate in the past. She has a sulfa allergy. She has declined leflunomide due to side effect profile. Failed hydroxychloroquine as she continued to have persistent polyarthralgias. Cosentyx was tried in 2022 but discontinued after 2 maintenance doses due to development of facial lesions with cellulitis. On Cosentyx she was able to lie on her stomach, which she was unable to do in the past. After treatment of cellulitis she continued to develop facial lesions extending to involve her extremities, unclear etiology. She has degenerative disc disease C5-C6 and C6-C7 with straightening of lordosis possibly indicating spasm 06/20/2023. X-ray right shoulder 02/06/2024 is normal. X-ray right shoulder 09/27/2024 reveals mild AC joint and glenohumeral joint arthritis. MRI pelvis with and without contrast 01/25/2023, which reveals no suspicious osseous lesion. Unchanged angulation of the sacral coccygeal region. MRI pelvis reveals findings suspicious for deep infiltrating endometriosis, adenomyosis, 1.2 cm submucosal fibroid in the fundus and a few small nabothian cysts. Gynecology is aware of MRI pelvis findings without any further recommendations per patient. MRI pelvis October 2024 was unremarkable. Code(s): M45.9 - Ankylosing spondylitis of unspecified sites in spine Category: Medical Qualifiers: Ankylosing spondylitis location: sacral region Qualified Code(s): M45.8 - Ankylosing spondylitis sacral and sacrococcygeal region Plan: Increase baclofen 10 mg twice a day Stop meloxicam Start nabumetone 500 mg twice a day Start physical therapy for back strengthening and to improve right shoulder range of motion. If she is unable to progress with PT in improving right shoulder range of motion, I will order MRI right shoulder for further evaluation Requesting dermatology note from [facility] Follow up with Dermatology to start Cosentyx Labs for drug monitoring on chronic NSAID and inflammatory markers ordered this visit. I have ordered RF and anti CCP antibody for further workup of peripheral inflammatory arthritis. Return to clinic in 3 months (2) Lumbar spondylosis: Code(s): M47.816 - Spondylosis without myelopathy or radiculopathy, lumbar region Category: Medical Plan: See above (3) Myofascial low back pain: Code(s): M54.50 - Low back pain, unspecified Category: Medical Plan: Increase baclofen frequency to 10 mg twice a day Start PT Return to clinic in 3 months (4) Adhesive capsulitis of right shoulder: Comment: Chronic, limited range of motion is consistent with adhesive capsulitis. She has underlying mild AC and glenohumeral joint arthritis on x-ray. Code(s): M75.01 - Adhesive capsulitis of right shoulder Category: Medical Plan: Start PT Start nabumetone 500 mg b.i.d. Stop meloxicam Return to clinic in 3 months (5) Primary osteoarthritis, right shoulder: Code(s): M19.011 - Primary osteoarthritis, right shoulder Category: Medical Plan: See above (6) Fibromyalgia: Code(s): M79.7 - Fibromyalgia Category: Medical Plan: She is on duloxetine, which is indicated for fibromyalgia. (7) Inflammatory arthritis: Code(s): M19.90 - Unspecified osteoarthritis, unspecified site Category: Medical Plan: See above Orders: Orders Alanine Aminotransferase Today M19.011 - Primary osteoarthritis, right shoulder, M45.8 - Ankylosing spondylitis sacral and sacrococcygeal region, M47.816 - Spondylosis without myelopathy or radiculopathy, lumbar region, M75.01 - Adhesive capsulitis of right shoulder Complete Blood Count Man Dif Today M19.011 - Primary osteoarthritis, right shoulder, M45.8 - Ankylosing spondylitis sacral and sacrococcygeal region, M47.816 - Spondylosis without myelopathy or radiculopathy, lumbar region, M75.01 - Adhesive capsulitis of right shoulder Aspartate Amino Transferase Today M19.011 - Primary osteoarthritis, right shoulder, M45.8 - Ankylosing spondylitis sacral and sacrococcygeal region, M47.816 - Spondylosis without myelopathy or radiculopathy, lumbar region, M75.01 - Adhesive capsulitis of right shoulder Creatinine Today M19.011 - Primary osteoarthritis, right shoulder, M45.8 - Ankylosing spondylitis sacral and sacrococcygeal region, M47.816 - Spondylosis without myelopathy or radiculopathy, lumbar region, M75.01 - Adhesive capsulitis of right shoulder C Reactive Protein Today M19.011 - Primary osteoarthritis, right shoulder, M45.8 - Ankylosing spondylitis sacral and sacrococcygeal region, M47.816 - Spondylosis without myelopathy or radiculopathy, lumbar region, M75.01 - Adhesive capsulitis of right shoulder Erythrocyte Sedimentation Rate Today M19.011 - Primary osteoarthritis, right shoulder, M45.8 - Ankylosing spondylitis sacral and sacrococcygeal region, M47.816 - Spondylosis without myelopathy or radiculopathy, lumbar region, M75.01 - Adhesive capsulitis of right shoulder Cyclic Citrullinated Peptide Today M19.90 - Unspecified osteoarthritis, unspecified site Rheumatoid Factor Today M19.90 - Unspecified osteoarthritis, unspecified site Medications: New nabumetone Take with food 500 mg PO BID 60 tabs 2RF Changed From baclofen Take half a tablet or 1 tablet at bedtime as needed for back pain (muscle relaxer) 10 mg PO BEDTIME PRN 30 tabs 2RF back pain To baclofen 10 mg PO BID PRN 30 tabs 2RF back pain Discontinued meloxicam Take with food. Discontinued Reason: Doctor's Order 15 mg PO DAILY 30 tabs 2RF Coding Level of Care Code Est Pt Level 4 (88976) Complex EM visit Add On G2211 Diagnoses Ankylosing spondylitis of sacral region M45.8 Ankylosing spondylitis location: sacral region Lumbar spondylosis M47.816 Myofascial low back pain M54.50 Adhesive capsulitis of right shoulder M75.01 Primary osteoarthritis, right shoulder M19.011 Fibromyalgia M79.7 Inflammatory arthritis M19.90
[2025-02-06 09:08] VITALS: BP 160/100; PULSE 106; O2SAT 96; BMI 31.9
--- OUTSIDE RECORDS SUMMARY | 2025-02-06 09:28 | XMS_ITS | Continuity of Care Document ---
Author Organization [facility] Address [address] [place], [place] Phone [phone] Care Team Providers Care Meat Products Demonstrator Name Role Phone Allie Galaviz CNP Care Team Information Manager Engagement Unavailable ANJANA PICHARDO M.D. Care Team Information [...] Social History Type Date Description Comments Sex Female Sex Unknown Allergies and adverse reactions Active Allergies Criticality Reaction Severity Comments Date Trileptal Unable to assess criticality 02/05/2020 Sulfamethoxazole Unable to assess criticality 02/05/2020 Vicodin Unable to assess criticality 02/05/2020 Polytrim Unable to assess criticality 02/05/2020 Methotrexate Unable to assess criticality 06/16/2020 Medications Active Medications SIG Qnty Indications Ordering Provider Date Freestyle Lite TestStrips 1 strip to meter 1 time a day 100units E11.9 Anjana Pichardo M.D. 11/05/2024 Freestyle LancetsMisc 1 lancet 1 time a day 100units E11.9 Anjana Pichardo M.D. 11/05/2024 Freestyle Lite Blood Glucose Monitoring SystemW/Device Kit use 1x a day to test bs 1units E16.2 Anjana Pichardo M.D. 09/03/2024 E11.9 Ozempic (0.25 Or 0.5 MG/Dose)2mg/3ML Solution Pen-Inject Inject 0.5 MG Once Weekly as Tolerated 3units E11.9 Anjana Pichardo M.D. 07/19/2024 Jaaptaijolljls43qs Tablets take 1 tablet by mouth twice a day 180tabs E11.9 Anjana Pichardo M.D. 07/19/2024 Levothyroxine Frjddb53crx Tablets take 1 tablet by mouth every day 90tabs E06.3 Anjana Pichardo M.D. 06/29/2023 Tretinoin0.05% Cream 2-3x a week Unknown Zantac 90197vl Tablets 1 tab by mouth every day Unknown Cyclobenzaprine HCL5mg Tablets prn Weston Neal MD Nacn-Acetyl L-Cystine(Selenium, B12) Unknown Mupirocin2% Ointment Unknown Clonidine HCL0.1mg Tablets White, Ivis, GENERATION TECHNOLOGIST Nfsdnyvb769om Tablets prn arm pain/stiff Weston Neal MD Neosporin Plus Pain Relief Maximum Strength3.5-81029-59 Cream multiple times a day Unknown Hydroxyzine CVX87hu Tablets am dose as needed Unknown Ytjjssvfzp71kn Tablets Take 1 am & 3 in pm Unknown Vitamin B Complex-CCapsules Daily Un known Iznrbkl037cq Capsules as needed Unknown Lubricant Eye Drops0.4-0.3% Solution Unknown MultivitaminTablets 1/ day(contains iron) Unknown Benedryl prn only @hs Unknown 0 000 Evxlkmqwqd7sr Tablets Take 1 Tablet By Mouth Once Or Twice Daily as Needed Unknown History Medications Freestyle Jessy 3 Plus/Sensor/Glucose Monitoring SystemMisc use to measure bs 4 or more times a day 6units E16.2 Anjana Pichardo M.D. 08/28/2024 - 09/03/2024 E11.9 Similac Alimentum Advance-IronLiquid take 65mg iron by mouth daily 30units Anjana Pichardo M.D. 06/29/2023 - 07/19/2024 Levothyroxine Vawpbx81urn Tablets 1 take tablet once daily 90tabs E06.3 Anjana Pichardo M.D. 11/23/2021 - 04/19/2022 Levothyroxine Tcjskf92ozs Tablets Take 1&1/2 Tabs(37.5mcg) For 4 Days Per Week & 2Tabs(50mcg) For 3 Days A Week 90tabs E06.3 Anjana Pichardo M.D. 04/07/2020 - 11/23/2021 Dysutu-N40-968fu Tablets 1 tabs by mouth three times a day 90tabs D64.9 Anjana Pichardo M.D. 04/07/2020 - 03/15/2023 Levothyroxine Xkyybd41kdu Tablets 1 by mouth every day 90tabs E06.3 Anjana Pichardo M.D. 02/05/2020 - 04/07/2020 Escitalopram Adeartf20xa Tablets Ivis Alejandra NP - 08/23/2024 Feso4 Liq 220mg/5ml-intolera nt Unknown - 08/23/2024 Doxycycline Yrilcgycrvv430bj Capsules Allie Galaviz CNP - 08/23/2024 Paxlovid (300/100)20x 150 mg & 10 x 100mg TBPK Take 3 Tablets By Mouth Twice A Day For 5 Days Veronica Serra, JENELLE - 07/19/2024 Betamethasone Dipropionate Augmented0.05% Cream every other day or janice 3 or as needed Alex Blanco MD - 08/23/2024 Clindamycin Phosphate1% Lotion 2x day Tati Bowens NP - 08/23/2024 Vilazodone FTW02kk Tablets qd Ivis Alejandra NP - 08/23/2024 Levothyroxine Adnkle41ueu Tablets Take 1&1/2 Tabs(37.5mcg) By Mouth For 4 Days Per Week & 2Tabs(50mcg) For 3 Days A Week 90tabs E06.3 Anjana Pichardo M.D. - 06/29/2023 Aliquot/Tretinion/HC Powder apply to face Unknown - 03/15/2023 Hydroxychloroquine Firftgl771bv Tablets Take 2 Tablets By Mouth Every Day Mariel Fink MD - 08/23/2024 Amphetamine-Dextroamphet tekrk63cy Tablets Take 1 Tablet By Mouth Twice A Day-stopped since not helpful Ivis Alejandra NP - 07/19/2024 Cosentyx Sensoready Ffh766ro/ml Solution Auto-Inject Mariel Fink MD - 04/19/2022 Vitamin D-325mcg (1000 Ut) Capsules take 1 capsule by mouth every day in the morning for dietary supplement Unknown - 03/15/2023 Vitamin C500mg Capsules 1 by mouth every day Unknown - 06/16/2020 Loreplh93bu Packet Unknown 0 - 02/05/2020 Fluzone Quadrivalent0.5ml Nurys To Be Administered By Pharmacist For Immunization Unknown - 06/16/2020 Hydroxyzine AWL68ut Tablets Take 1 Tablet By Mouth With Each Meal Unknown - 11/23/[address] Part Take 1 Capsule By Mouth Every Day Unknown - 09/18/2020 Trazodone KVH57db Tablets Take 1 Tablet By Mouth Everyday AT Bedtime Unknown - 09/18/[address] Take 1 Capsule By Mouth Every Day Unknown - 07/19/2024 Prazosin HCL1mg Capsules Take 1 Capsule By Mouth Everyday AT Bedtime Unknown - 03/15/2023 Epxwrnlqgf3gr Tablets Take 1 Tablet By Mouth Every Day Unknown - 06/16/2020 Methotrexate2.5mg Tablets Take 6 Tablets By Mouth Every Week Unknown - 06/16/2020 Folic Stut5yk Tablets Take 1 Tablet By Mouth Every Day Unknown - 03/15/2023
--- OUTSIDE RECORDS SUMMARY | 2025-02-06 09:28 | XMS_ITS | Clinical Summary ---
Author Organization [facility] Address [address] [place] [address] [address] [place] [address] Care Team Providers Care Button Sewer Hand Name Role Phone Key Martin Unavailable Allie Galaviz NP Primary Care Provider [phone] Allergies Active Allergy Reactions Criticality Noted Date [...] BY MOUTH TWICE A DAY, NEEDED FOR ANXIETY/INSOMN IA/ITCHING 2 Active topiramate (Topamax) 25 MG tablet TAKE ONE (1) TABLET BY MOUTH EVERY MORNING AND THREE (3) TABLETS AT BEDTIME 2 Active tretinoin (Retin-A) 0.05 % cream [...] 30 tablet 11 5 10/02/19 26 Active Active Problems Problem Noted Date Diagnosed Date [...] Dr. Neal at [facility] [place] Assessment & Plan (07/13/2023 10:39 AM EST): [...] With history of rectal fissure surgically repaired [facility]. Ongoing hemorrhoid discomfort, will refer back [...] left practice, is in need of new Pneumatic Tube Fitter - will place urgent referral to assist in FELY visit Urticaria 11/03/2014 Allergic rhinitis 01/17/2012 Panic disorder 01/17/2012 Well controlled intermittent asthma 01/17/2012 Immunizations Immunization Administration Dates Next Due Hep B, adult [...] the past 12 months, has t he [employer], gas, oil or water company threatened to [...] 120 09/25/2024 4:17 PM EST Temperature 36.1 C (97 F) 09/25/2024 4:17 PM EST Respiratory Rate - - Oxygen Saturation 98% 09/25/2024 4:17 PM EST Inhaled Oxygen Concentration - - Weight 97.3 kg (214 lb 9.6 oz) 09/25/2024 4:17 P M EST Height 167.6 cm (5' 6 ) 06/14/2024 2:57 PM EST Body Mass Index 34.64 06/14/2024 2:57 PM EST Plan of Treatment Upcoming Encounters Date Type Department Care Team ([facility] st Contact Info) Description 02/24/2025 2:40 PM EDT Office Visit [facility] [address] [place] [address] Allie Galaviz, JENELLE [address] [place] [address] Health Maintenance Due Date Last Done Comments CT Colonography 1977 Dental Oral Exam 1977 Dental Prophylaxis 1977 Dental X-Ray: Bitewings 1977 Dental X-Ray: Full Mouth 1977 FIT DNA/Cologuard 1977 FIT 1977 FOBT 1977 HIV Screening 1977 Sigmoidoscopy 1977 Alcohol/Substance Use Screening 1989 Family Planning (PISQ) 01/21/1992 DTaP/Tdap/Td Vaccines (1 - Tdap) 01/23/2001 01/22/2001 Depression Monitoring 12/01/2023 06/02/2023, 023 COVID-19 Vaccine ( season) 2024 05/18/2022, 09/06/2021, 04/14/2021, Additional history exists SDOH Screening 06/02/2024 06/02/2023 Mammogram 01/16/2025 01/16/2023, 02/28, 12/04/2018, Additional history exists Influenza Vaccine (#1) 2025 , 07/13/2023, 05/18/2022, Additional history exists Pap Smear 04/07/2025 04/07/2022 Tobacco Screening 06/14/2025 06/14/2024 Disability Screening 07/29/2025 07/29/2024 Zoster Vaccines (1 of 2) 2027 Cervical Cancer Screening 04/07/2027 HPV/Cotest 04/07/2027 04/07/2022, 04/07/2022 Colonoscopy 10/02/2029 10/03/2019 Colorectal Cancer Screening 10/02/2029 RSV Patients and Patients Aged 60 years or older (1 - 1-dose 75+ series) 01/21/2052 Hepatitis B Vaccines Completed 08/23/2005, 07/29/2004, 10/01/2001 Pneumococcal Vaccine: Pediatrics (0 to 5 Years) and At-Risk Patients (6 to 49) Years Completed 09/06/2021, 04/29/2020 Hepatitis C Screening Completed 09/14/2021 HIB Vaccines Aged Out No longer eligi [...] patient's age to complete this topic Meningococcal B Vaccine Aged Out No l onger eligible based on patient's age to complete [...] Procedure Name Priority Date/Time Associated Diagnosis Comments BI MAMMOGRAM SCREENING TOMOSYNTHESIS BILATERAL Routine 01/16/2023 5:12 PM EDT HM PAP/HPV Routine 04/07/2022 HM HEPATITIS C ANTIBODY Routine 09/14/2021 COLONOSCOPY Routine 10/03/2019 12:00 AM EST from Last 3 Months or Most Recently Relevant to Health Maintenance Results * BI Mammogram Screening Tomosynthesis Bilateral (01/16/2023 [...] (Benign) Lay letter mailed to patient WSN: [id number] Ordering Physician: Tati Bowens Dictated By: Kandy Lewis MD Dictated Date/Time: 01/17/23 8:53 am Reviewed By: Kandy Lewis MD Signed By: Kandy Lewis MD Signed Date/Time: 01/17/23 8:53 am Transcribed By: CSB Metrology Manager Date/Time: 01/17/23 8:50 am Birads: Procedure Note Donotuseinterpreter, [...] (Benign) Lay letter mailed to patient WSN: [id number] Ordering Physician: Tati Bowens Dictated By: Kandy Lewis MD Dictated Date/Time: 01/17/23 8:53 am Reviewed By: Kandy Lewis MD Signed By: Kandy Lewis MD Signed Date/Time: 01/17/23 8:53 am Transcribed By: CSB Metrology Manager Date/Time: 01/17/23 8:50 am Birads: Tati Bowens MANIFOLD BUILDER IMG BI PROCEDURES Final Result * Hm Pap Smear (04/07/2022) Pap Negative for intraephithelial lesion or malignancy Negative for intraephithelial lesion or malignancy, Other HPV Undetected us Historical Provider HEALTH MAINTENANCE Final Result * HM Hepatitis C Antibody (09/14/2021) Hepatitis C Antibody Nonreactive Blood us Historical Provider HEALTH MAINTENANCE Final Result * [...] Most Recently Relevant to Health Maintenance Insurance [facility] STANDARD MEDICARE [facility] MED[facility] STAND ADULT DENTAL - HSN FULL (MEDICAID) Care Teams Button Sewer Hand Relationship Specialty Start Date End Date Allie Galaviz NP [address] [place] [id number] PCP - General Family Medicine 05/10/23 Key Martin [address] [place] [address] Community Partner [facility] 02/27/23
--- OUTSIDE RECORDS SUMMARY | 2025-02-06 09:28 | XMS_ITS | Clinical Summary ---
Author Organization [facility] Address [address] [place] [address] Care Team Providers Care Field Reviewer Name Role Phone Allie Galaviz MECHANIC CHIEF Primary Care Provider [phone] Allergies Active Allergy Reactions Criticality Noted Date [...] Antibiotics) Hives 05/13/2016 Medications mupirocin (BACTROBAN) 2% ointmentIndicatio ns:Skin erosion APPLY TOPICALLY TO AFFECTED AREA DAILY 22 g 3 4 Active ascorbic acid (VITAMIN C) 500 mg tablet Take 500 mg by mouth daily. 5 10/02/19 26 Active blood glucose diagnostic meter 5 Active vitamin B complex capsule Active acetaminophen (TylenoL) 325 mg capsule Take by mouth. Activ e B-complex with vitamin C (VITAMIN B COMPLEX WITH C ORAL) Active baclofen (LIORESAL) 10 mg tablet 5 Active FreeStyle Lite Meter meter USE 1 TIME A DAY TO TEST BLOOD SUGAR 5 Active Hibiclens 4 % external liquid SMARTSIG:Topic al Daily PRN Active clonazePAM (KlonoPIN) 1 mg tablet Active Cymbalta 30 mg capsule Active Cymbalta 60 mg capsule 5 Active famotidine (PEPCID) 10 mg tablet Take by mouth. Activ e hydrOXYzine HCL (ATARAX) 10 mg tablet Take 10 mg by mouth. Active hydrOXYzine (ATARAX) 50 mg tablet Active levothyroxine (SYNTHROID, LEVOTHROID) 50 mcg tablet 0 Active loratadine 10 mg capsule Active loratadine (CLARITIN) 10 mg tablet SMARTSI Tablet(s) By Mouth Every Morning Active LORazepam (ATIVAN) 1 mg tablet SMARTSI Tablet(s) By Mouth Twice Daily PRN 5 Active meloxicam (MOBIC) 15 mg tablet 5 Active peg 400-propylene glycol (Lubricant Eye, PG-PEG 400,) 0.4-0.3 % drops eye drops Instill into affected eye(s). Active Ozempic 0.25 mg or 0.5 mg (2 mg/3 mL) Inject under the skin. 4 Active semaglutide (Ozempic) 0.25 mg or 0.5 mg(2 mg/1.5 mL) injection 5 Active silver sulfadiazine (SILVADENE) 1% cream Apply topically to the affected area daily. 5 Active spironolactone (ALDACTONE) 25 mg tablet Take by mouth. 4 Active topiramate (TOPAMAX) 25 mg tablet Active mupirocin 2 % ointment kit Active secukinumab (COSENTYX) 150 mg/mL subcutaneous pen injectorIndicatio ns:Hidradenitis suppurativa Inject 300 mg (2 mL) under the skin once weekly at weeks 0, 1, 2, 3 and 4 then followed by 300 mg (2 mL) under the skin every 4 weeks thereafter. 10 mL 5 Active secukinumab (COSENTYX) 150 mg/mL subcutaneous pen injectorIndicatio ns:Hidradenitis suppurativa Inject 2 mL (300 mg total) under the skin every 28 days. 2 mL 5 5 Active triamcinolone acetonide (KENALOG) 0.1% creamIndications: Skin pruritus Apply topically to the affected area 2 times a day as needed for irritation (itch). Avoid the face, armpits, groin, buttocks, breasts 80 g 1 5 Active lidocaine-priloca ine (EMLA) creamIndications: Hidradenitis suppurativa Apply a thick layer on areas that will be treated for laser hair removal, cover with a saran wrap 45-60 minutes before the procedure. 30 g 5 Active clindamycin (CLEOCIN T) 1 % lotionIndications :Hidradenitis suppurativa Apply once daily to the pus bumps or erosions or pustules on the face or body 60 mL 5 5 Active Active Problems No known active problems Encounters Date Type Department Care Team Description 01/30/2025 Telephone [facility] 2nd Floor [address], [place] [address] Hospital Receiving Clerk: Kinga Valenzuela MD from Last 3 Months Immunizations Immunization Administration Dates Next Due Covid-19, Pfizer, mRNA, [place] valent, PF 30 mcg/0.3 mL dose (for [...] Description 02/27/2025 11:00 AM EDT Office Visit [facility] [address] [address] Hospital Receiving Clerk: Kinga Valenzuela MD [address] [place] [phone] 02/27/2025 11:15 AM EDT Procedure visit [facility] [address] [address] Hospital Receiving Clerk: Kinga Valenzuela MD [address] [place] [phone] Health Maintenance Due Date Last Done Comments [...] [place] ual Screening 07/31/2024 Mammogram 01/16/2025 01/16/2023 Influenza Vaccine (#1) 2025 4, 07/13/2023, 05/18/2022, Additional history exists Colon Cancer Screening 10/02/2029 Colonoscopy 10/02/2029 10/03/2019 RSV Vaccine (60+ years old a nd patients) (1 - 1-dose 75+ series) 01/21/2052 Hepatitis B Vaccines Completed 08/23/2005, 07/29/2004, 10/01/2001 Pneumococcal Vaccine: Pediat isaiah (0-5 Years) and At-Risk Patients (6-50 Years) Completed 09/06/2021, 04/29/2020 Hepatitis C Screening Completed 10/31/2024 Procedures * Due to [place] [employer] law, this organization might not be sharing negative HIV tests. Procedure Name Priority Date/Time Associated Diagnosis Comments HEPATITIS C ANTIBODY W/REFLEX TO HCV RNA, QUANTITATIVE PCR Routine 10/31/2024 2:50 PM EDT High risk medication use from Last 3 Months or Most Recently Relevant to Health Maintenance Results * Due to [place] [employer] law, this organization might not be sharing negative HIV tests. * Hepatitis C Antibody w/Reflex to HCV RNA, Quantitative PCR (10/31/2024 2:50 PM EDT) Hepatitis C Antibody NON-REACT LOBO NON-REACT LOBO 10/31/2024 11:43 PM EDT [facility] Comment: HCV antibody was non-reactive. There is no laboratory evidence of HCV infection. In most cases, no further action is required. However, if recent HCV exposure is suspected, a test for HCV RNA (test code 34250) is suggested. For additional information please refer to http://education.[employer]/faq/JFY25y1 (This link is being provided for informational/ educational purposes only.) Blood Structure of peripheral vein / Unknown Venipuncture / Unknown 10/31/2024 2:50 PM EDT 10/31/2024 2:50 PM EDT Narrative [facility] - 10/31/2024 11:43 PM EDT [facility] Received Date: Kinga Crocker MD LAB BLOOD ORDERABLES Final R esult [facility] [address] [facility] [address], [place] [address], [place] [phone] [facility] [address], [place] [address], [place] [phone] from Last 3 Months or Most Recently Relevant to Health Maintenance Insurance [facility] MEDICARE Care Teams Field Reviewer Relationship Specialty Start Date End Date Allie Galaviz NP [address] [place] [phone] PCP - General Family Medicine 08/27/24
== END 2025-02-06 09:52 | disposition home or self-care (01) ==
LOC: HO.RHES 09:05
PROVIDERS: Visit Provider Internal Medicine Rheumatology
DX: M45.8 Ankylosing spondylitis sacral and sacrococcygeal region (principal); M47.816 Spondylosis without myelopathy or radiculopathy, lumbar region; M54.50 Low back pain, unspecified; M75.01 Adhesive capsulitis of right shoulder; M19.011 Primary osteoarthritis, right shoulder; M79.7 Fibromyalgia; M19.90 Unspecified osteoarthritis, unspecified site
CPT/HCPCS: 99214; G2211

== ENCOUNTER 2025-02-06 09:05 | Outpatient (REF) | payer MEDICARE, MEDICAID, SELFPAY ==
[2025-02-06 14:19] LABS: Baso%MD 0.6 %; Eos%MD 1.6 %; Hematocrit 38.0 % (37.0-47.0); Hemoglobin 11.9 g/dl (12.0-16.0); IG%MD 0.8 %; Lymph%MD 24.7 %; Mean Corpuscular HGB Conc 31.3 g/dl (31.0-35.0); Mean Corpuscular Hemoglobin 26.3 pg (27.0-33.0); Mean Corpuscular Volume 83.9 fL (80.0-98.0); Mono%MD 6.5 %; NRBC Abs Auto 0.000 X10*3/uL (0.0-0.012); NRBC Pct Auto 0.0 /100WBC (0.0-0.2); Neut%MD 65.8 %; Platelet Count 358 X10*3/uL (160-400); Red Blood Count 4.53 X10*6/uL (4.20-5.50); White Blood Count 8.6 X10*3/uL (4.8-10.8)
[2025-02-06 14:49] LABS: Alanine Aminotransferase 13 U/L (0-31); Aspartate Amino Transferase 22 U/L (5-31); Estimated Glomerular Filt Rate > 60
[2025-02-06 20:40] LABS: Basophils Abs Manual 0.3 X10*3/uL (0.0-0.2); Basophils Percent Manual 3 % (0-2); Eosinophils Absolute Manual 0.3 X10*3/uL (0.0-0.4); Eosinophils Percent Manual 3 % (0-4); Lymphocytes Absolute Manual 1.6 X10*3/uL (1.2-4.9); Lymphocytes Percent Manual 19 % (20-40); Monocytes Absolute Manual 0.3 X10*3/uL (0.1-1.2); Monocytes Percent Manual 4 % (2-11); Neutrophils Percent Manual 71 % (45-73)
[2025-02-06 20:41] LABS: Band Neutrophils Percent 0 % (3-5); Neutrophils Absolute Manual 6.1 X10*3/uL (2.0-8.3); RBC Morphology NORMAL
== END 2025-02-06 09:06 | disposition home or self-care (01) ==
LOC: HO.HKASLDS 09:05
PROVIDERS: Visit Provider Internal Medicine Rheumatology
DX: M19.011 Primary osteoarthritis, right shoulder (principal); M47.816 Spondylosis without myelopathy or radiculopathy, lumbar region; M45.8 Ankylosing spondylitis sacral and sacrococcygeal region; M75.01 Adhesive capsulitis of right shoulder; M54.50 Low back pain, unspecified; M19.90 Unspecified osteoarthritis, unspecified site
CPT/HCPCS: 36415; 82565; 84450; 84460; 85007; 85027; 85652; 86140; 99212